=== PATIENT | female | born 1955 | race Caucasian/White ===

== ENCOUNTER 2021-08-02 13:01 | Inpatient (IN) | payer BC, OTHER ==
[2021-08-02] MEDS ORDERED: ACETAMINOPHEN 1000 MG/100 ML BAG IVPB ONE (14:19)
[2021-08-02] MEDS ORDERED: ONDANSETRON 4 MG/2 ML VIAL IVPUSH ONE (14:20)
[2021-08-02 15:09] LABS: BASO % 1.2 % (0-2.0); EOS % 2.8 % (0-4.5); HEMATOCRIT 42.6 % (32.4-45.2); HEMOGLOBIN 14.1 GM/dL (10.7-15.3); LYMPH % 36.4 % (8-40); MCH 29.7 pg (25.7-33.7); MCHC 33.1 g/dl (32.0-36.0); MEAN CELL VOLUME 89.6 fl (80-96); MEAN PLT VOLUME 9.7 fl (7.5-11.1); MONO % 15.8 % (3.8-10.2); NEUT % 43.8 % (42.8-82.8); PLATELET COUNT 241 10^3/uL (134-434); RBC 4.76 M/mm3 (3.60-5.2); RDW 14.4 % (11.6-15.6); WHITE BLOOD COUNT 3.6 K/mm3 (4.0-10.0)
[2021-08-02 15:29] LABS: CALCIUM 9.2 mg/dL (8.5-10.1)
[2021-08-02 15:30] LABS: ALBUMIN 3.5 g/dl (3.4-5.0); BLOOD UREA NITROGEN 15.3 mg/dL (7-18); MAGNESIUM 2.1 mg/dL (1.8-2.4)
[2021-08-02 15:33] LABS: CREATININE 0.9 mg/dL (0.55-1.3)
[2021-08-02 15:34] LABS: BILIRUBIN,TOTAL 0.3 mg/dL (0.2-1); TOT PROT 7.6 g/dl (6.4-8.2)
[2021-08-02 15:38] LABS: EPI CELLS 10 /uL (0-25.1); HYALINE CASTS 0 /uL (0-3.1); URINE APPEARANCE CLEAR; URINE BACTERIA 468 /uL (0-1359); URINE BILIRUBIN NEGATIVE (NEGATIVE); URINE COLOR YELLOW; URINE GLUCOSE (UA) NEGATIVE (NEGATIVE); URINE KETONE NEGATIVE (NEGATIVE); URINE LEUK ESTERASE 2+ (NEGATIVE); URINE NITRITE NEGATIVE (NEGATIVE); URINE PROTEIN NEGATIVE (NEGATIVE); URINE RBC 13 /uL (0-23.9); URINE UROBILINOGEN 0.2 mg/dL (0.2-1.0); URINE WBC 35 /uL (0-25.8)
[2021-08-02] MEDS ORDERED: CEFTRIAXONE 1 GM in DEXTROSE 5%-WATER - 100 ML IVPB ONE (16:42)
[2021-08-02] MEDS ORDERED: CEFTRIAXONE 1 GM/50 ML BAG ONE (16:50)
[2021-08-02] MEDS ORDERED: METOCLOPRAMIDE HCL INJECTION 10 MG/2 ML VIAL IVPUSH ONE (17:17)
[2021-08-02] MEDS ORDERED: SODIUM CHLORIDE 0.9% 500 ML INFUS.BAG IV ONE (17:18)
[2021-08-02] MEDS ORDERED: METOCLOPRAMIDE HCL INJECTION 10 MG/2 ML VIAL ONE (17:41)
[2021-08-02] MEDS ORDERED: METHOCARBAMOL 500 MG TABLET PO PRN (23:37)
[2021-08-02] MEDS ORDERED: ALBUTEROL SO4 2.5/IPRATROPIUM 0.5 INH SOL 3 ML VIAL.NEB. NEB PRN (23:43)
[2021-08-03] MEDS ORDERED: MELATONIN 5 MG TABLETS ONE (02:09)
[2021-08-03] MEDS ORDERED: ATORVASTATIN CA 20 MG TABLET (FP) ONE (02:09)
[2021-08-03] MEDS ORDERED: GABAPENTIN 300 MG CAPSULE ONE ×2 (02:10→07:22)
[2021-08-03] MEDS: ATORVASTATIN CA 20 MG TABLET (FP) PO SCH ×2 (02:17→22:12)
[2021-08-03] MEDS: GABAPENTIN 300 MG CAPSULE PO SCH ×4 (02:18→22:12)
[2021-08-03] MEDS: MELATONIN 5 MG TABLETS PO PRN (02:18)
[2021-08-03 08:40] LABS: EOS % 3.8 % (0-4.5); HEMATOCRIT 39.3 % (32.4-45.2); HEMOGLOBIN 13.1 GM/dL (10.7-15.3); LYMPH % 37.4 % (8-40); MCH 29.8 pg (25.7-33.7); MCHC 33.4 g/dl (32.0-36.0); MEAN PLT VOLUME 9.2 fl (7.5-11.1); MONO % 15.4 % (3.8-10.2); NEUT % 42.4 % (42.8-82.8); PLATELET COUNT 213 10^3/uL (134-434); RBC 4.42 M/mm3 (3.60-5.2); RDW 14.2 % (11.6-15.6); WHITE BLOOD COUNT 3.1 K/mm3 (4.0-10.0)
[2021-08-03 09:51] LABS: BLOOD UREA NITROGEN 15.8 mg/dL (7-18); CALCIUM 8.8 mg/dL (8.5-10.1); CREATININE 0.7 mg/dL (0.55-1.3)
[2021-08-03] MEDS ORDERED: metoPROLOL SUCCINATE 25 MG TAB.SR.24H (FP) PO SCH (10:00)
[2021-08-03] MEDS ORDERED: DULoxetine HCL 60 MG CAPSULE.DR PO SCH (10:00)
[2021-08-03] MEDS ORDERED: cefTRIAXone SODIUM 1 GM VIAL ONE (10:16)
[2021-08-03] MEDS ORDERED: DEXTROSE 5%-WATER - 50 ML IVPB ONE (10:17)
[2021-08-03] MEDS: DULoxetine HCL 30 MG CAPSULE.DR PO SCH (10:18)
[2021-08-03] MEDS: levETIRAcetam 250 MG TABLET PO SCH ×2 (10:19→22:12)
[2021-08-03] MEDS: CEFTRIAXONE 1 GM in DEXTROSE 5%-WATER - 50 ML IVPB SCH (10:19)
[2021-08-03] MEDS: LOSARTAN POTASSIUM 25 MG TABLET PO SCH (10:19)
[2021-08-03 13:08] LABS: SARS-CoV-2 NAA Not Detected (Not Detected)
[2021-08-03 13:31] VITALS: BMI 40.9
[2021-08-03] MEDS: NYSTATIN POWDER 100,000 UNITS/GM - 15 GM TOPICAL POWDER TP PRN (13:43)
[2021-08-03] MEDS: BUDESONIDE/FORMETEROL FUMARATE 80/4.5 mcg INHALER IH SCH ×2 (13:44→22:13)
[2021-08-03] MEDS ORDERED: ACETAMINOPHEN 325 MG TABLET (FP) PO PRN (14:20)
[2021-08-03] MEDS: RIVAROXABAN 20 MG TABLET PO SCH (17:18)
[2021-08-03] MEDS ORDERED: SUMAtriptan SUCCINATE 50 MG TABLET PO PRN (21:21)
[2021-08-03] MEDS ORDERED: traZODone HCL 100 MG TABLET (FP) ONE (21:55)
[2021-08-03] MEDS ORDERED: traZODone HCL 50 MG TABLET (FP) ONE ×2 (21:55→22:03)
[2021-08-03] MEDS ORDERED: PATIENT'S OWN MEDICATION (NON-FORMULARY) (Trazodone Hcl [Trazodone Hcl] 150 MG Tablet) PO SCH (22:00)
[2021-08-03] MEDS: traZODone HCL 100 MG, traZODone HCL 50 MG PO SCH (22:12)
[2021-08-03] MEDS: TOPIRAMATE 25 MG TABLET PO SCH (22:12)
[2021-08-03] MEDS: PRAMIPEXOLE DIHYDROCHLORIDE 0.125 MG TABLET PO SCH (22:13)
[2021-08-04] MEDS: GABAPENTIN 300 MG CAPSULE PO SCH ×3 (06:46→21:23)
[2021-08-04] MEDS ORDERED: cefTRIAXone SODIUM 1 GM VIAL ONE (10:24)
[2021-08-04] MEDS ORDERED: DEXTROSE 5%-WATER - 50 ML IVPB ONE (10:24)
[2021-08-04] MEDS: DULoxetine HCL 30 MG CAPSULE.DR PO SCH (10:25)
[2021-08-04] MEDS: CEFTRIAXONE 1 GM in DEXTROSE 5%-WATER - 50 ML IVPB SCH (10:26)
[2021-08-04] MEDS: BUDESONIDE/FORMETEROL FUMARATE 80/4.5 mcg INHALER IH SCH (10:26)
[2021-08-04] MEDS: TOPIRAMATE 25 MG TABLET PO SCH ×2 (10:26→21:22)
[2021-08-04] MEDS: LOSARTAN POTASSIUM 25 MG TABLET PO SCH (10:26)
[2021-08-04] MEDS: levETIRAcetam 250 MG TABLET PO SCH ×3 (10:27→21:22)
[2021-08-04] MEDS: PRAMIPEXOLE DIHYDROCHLORIDE 0.125 MG TABLET PO SCH ×2 (10:27→22:03)
[2021-08-04] MEDS: VANCOMYCIN/WATER FOR INJ (PEG) 1,000 MG/200 ML BAG IVPB SCH (14:37)
[2021-08-04] MEDS: methylPREDNISolone NA SUCC 40 MG/1 ML VIAL IVPUSH SCH ×2 (17:28→21:23)
[2021-08-04] MEDS: RIVAROXABAN 20 MG TABLET PO SCH (17:28)
[2021-08-04 17:29] LABS: ALBUMIN 3.2 g/dl (3.4-5.0)
[2021-08-04 17:32] LABS: BILIRUBIN,DIRECT 0.1 mg/dL (0.0-0.2)
[2021-08-04 17:34] LABS: BILIRUBIN,TOTAL 0.2 mg/dL (0.2-1); TOT PROT 6.7 g/dl (6.4-8.2)
[2021-08-04] MEDS ORDERED: traZODone HCL 50 MG TABLET (FP) ONE (21:08)
[2021-08-04] MEDS ORDERED: traZODone HCL 100 MG TABLET (FP) ONE (21:08)
[2021-08-04] MEDS: ATORVASTATIN CA 20 MG TABLET (FP) PO SCH (21:22)
[2021-08-04] MEDS: traZODone HCL 100 MG, traZODone HCL 50 MG PO SCH (21:22)
[2021-08-04] MEDS: BUDESONIDE/FORMETEROL FUMARATE 160/4.5 mcg INHALER IH SCH (21:28)
[2021-08-05] MEDS: methylPREDNISolone NA SUCC 40 MG/1 ML VIAL IVPUSH SCH ×4 (03:47→20:40)
[2021-08-05] MEDS: GABAPENTIN 300 MG CAPSULE PO SCH ×3 (06:05→21:39)
[2021-08-05 06:07] LABS: SARS-CoV-2 NAA Not Detected (Not Detected)
[2021-08-05] MEDS ORDERED: BENZOCAINE/MENTHOL (CHLORASEPTIC ) LOZENGE MM PRN (09:25)
[2021-08-05] MEDS: DULoxetine HCL 30 MG CAPSULE.DR PO SCH (10:11)
[2021-08-05] MEDS: LOSARTAN POTASSIUM 25 MG TABLET PO SCH (10:12)
[2021-08-05] MEDS: BENZOCAINE/MENTHOL (CHLORASEPTIC ) LOZENGE MM SCH ×4 (10:12→21:47)
[2021-08-05] MEDS: BUDESONIDE/FORMETEROL FUMARATE 160/4.5 mcg INHALER IH SCH ×2 (10:13→21:40)
[2021-08-05] MEDS: levETIRAcetam 250 MG TABLET PO SCH ×2 (10:13→21:39)
[2021-08-05] MEDS: LORATADINE 10 MG TABLET PO SCH (10:13)
[2021-08-05] MEDS: TOPIRAMATE 25 MG TABLET PO SCH ×2 (10:13→21:39)
[2021-08-05] MEDS: PRAMIPEXOLE DIHYDROCHLORIDE 0.125 MG TABLET PO SCH ×2 (10:14→21:39)
[2021-08-05] MEDS: FLUTICASONE PROP 0.05% 16 GM NASAL SPRAY NS SCH (10:14)
[2021-08-05] MEDS: guaiFENesin/CODEINE 5 ML UNIT-DOSE CUPS PO PRN ×2 (13:23→20:40)
[2021-08-05] MEDS: VANCOMYCIN/WATER FOR INJ (PEG) 1,000 MG/200 ML BAG IVPB SCH (14:24)
[2021-08-05] MEDS: RIVAROXABAN 20 MG TABLET PO SCH (17:27)
[2021-08-05] MEDS ORDERED: traZODone HCL 100 MG TABLET (FP) ONE ×2 (21:34→21:36)
[2021-08-05] MEDS ORDERED: traZODone HCL 50 MG TABLET (FP) ONE ×2 (21:34→21:36)
[2021-08-05] MEDS: traZODone HCL 100 MG, traZODone HCL 50 MG PO SCH (21:39)
[2021-08-05] MEDS: NYSTATIN POWDER 100,000 UNITS/GM - 15 GM TOPICAL POWDER TP PRN (21:39)
[2021-08-05] MEDS: ATORVASTATIN CA 20 MG TABLET (FP) PO SCH (21:39)
[2021-08-06] MEDS: methylPREDNISolone NA SUCC 40 MG/1 ML VIAL IVPUSH SCH ×4 (03:13→20:29)
[2021-08-06] MEDS: GABAPENTIN 300 MG CAPSULE PO SCH ×3 (06:33→21:14)
[2021-08-06] MEDS: NYSTATIN POWDER 100,000 UNITS/GM - 15 GM TOPICAL POWDER TP PRN (06:33)
[2021-08-06 08:54] LABS: HEMATOCRIT 41.7 % (32.4-45.2); HEMOGLOBIN 13.8 GM/dL (10.7-15.3); MCH 29.7 pg (25.7-33.7); MCHC 33.1 g/dl (32.0-36.0); MEAN CELL VOLUME 89.9 fl (80-96); PLATELET COUNT 311 10^3/uL (134-434); RBC 4.64 M/mm3 (3.60-5.2); RDW 14.4 % (11.6-15.6); WHITE BLOOD COUNT 5.7 K/mm3 (4.0-10.0)
[2021-08-06] MEDS: DULoxetine HCL 30 MG CAPSULE.DR PO SCH (09:00)
[2021-08-06] MEDS: PRAMIPEXOLE DIHYDROCHLORIDE 0.125 MG TABLET PO SCH ×2 (09:01→21:14)
[2021-08-06] MEDS: TOPIRAMATE 25 MG TABLET PO SCH ×2 (09:01→21:14)
[2021-08-06] MEDS: LORATADINE 10 MG TABLET PO SCH (09:02)
[2021-08-06] MEDS: levETIRAcetam 250 MG TABLET PO SCH ×2 (09:02→21:14)
[2021-08-06] MEDS: FLUTICASONE PROP 0.05% 16 GM NASAL SPRAY NS SCH (09:02)
[2021-08-06] MEDS: BENZOCAINE/MENTHOL (CHLORASEPTIC ) LOZENGE MM SCH ×4 (09:02→22:54)
[2021-08-06] MEDS: LOSARTAN POTASSIUM 25 MG TABLET PO SCH (09:02)
[2021-08-06] MEDS: BUDESONIDE/FORMETEROL FUMARATE 160/4.5 mcg INHALER IH SCH ×2 (09:03→21:16)
[2021-08-06 09:06] LABS: BLOOD UREA NITROGEN 20.6 mg/dL (7-18)
[2021-08-06 09:09] LABS: CREATININE 0.8 mg/dL (0.55-1.3)
[2021-08-06] MEDS: guaiFENesin/CODEINE 5 ML UNIT-DOSE CUPS PO PRN ×2 (10:57→20:29)
[2021-08-06] MEDS: VANCOMYCIN/WATER FOR INJ (PEG) 1,000 MG/200 ML BAG IVPB SCH (13:34)
[2021-08-06] MEDS: ACETAMINOPHEN/CAFFEINE/BUTALBITAL 1 TAB PO PRN ×2 (14:01→22:54)
[2021-08-06] MEDS ORDERED: ACETAMINOPHEN/CAFFEINE/BUTALBITAL 1 TAB PO ONE (16:26)
[2021-08-06] MEDS: RIVAROXABAN 20 MG TABLET PO SCH (17:02)
[2021-08-06] MEDS ORDERED: traZODone HCL 50 MG TABLET (FP) ONE (21:07)
[2021-08-06] MEDS ORDERED: traZODone HCL 100 MG TABLET (FP) ONE (21:07)
[2021-08-06] MEDS: traZODone HCL 100 MG, traZODone HCL 50 MG PO SCH (21:14)
[2021-08-06] MEDS: ATORVASTATIN CA 20 MG TABLET (FP) PO SCH (21:14)
[2021-08-06] MEDS: MELATONIN 5 MG TABLETS PO PRN (21:15)
[2021-08-07] MEDS: methylPREDNISolone NA SUCC 40 MG/1 ML VIAL IVPUSH SCH ×4 (03:04→20:41)
[2021-08-07] MEDS: GABAPENTIN 300 MG CAPSULE PO SCH ×3 (05:38→21:28)
[2021-08-07] MEDS: LOSARTAN POTASSIUM 25 MG TABLET PO SCH (09:27)
[2021-08-07] MEDS: DULoxetine HCL 30 MG CAPSULE.DR PO SCH (09:27)
[2021-08-07] MEDS: guaiFENesin/CODEINE 5 ML UNIT-DOSE CUPS PO PRN ×3 (09:27→22:58)
[2021-08-07] MEDS: LORATADINE 10 MG TABLET PO SCH (09:28)
[2021-08-07] MEDS: TOPIRAMATE 25 MG TABLET PO SCH ×2 (09:28→21:27)
[2021-08-07] MEDS: ACETAMINOPHEN/CAFFEINE/BUTALBITAL 1 TAB PO PRN ×3 (09:28→20:41)
[2021-08-07] MEDS: BENZOCAINE/MENTHOL (CHLORASEPTIC ) LOZENGE MM SCH ×4 (09:29→22:12)
[2021-08-07] MEDS: levETIRAcetam 250 MG TABLET PO SCH ×2 (09:29→21:27)
[2021-08-07] MEDS: FLUTICASONE PROP 0.05% 16 GM NASAL SPRAY NS SCH (09:29)
[2021-08-07] MEDS: PRAMIPEXOLE DIHYDROCHLORIDE 0.125 MG TABLET PO SCH (09:31)
[2021-08-07] MEDS: BUDESONIDE/FORMETEROL FUMARATE 160/4.5 mcg INHALER IH SCH ×2 (09:31→22:16)
[2021-08-07] MEDS: RIVAROXABAN 20 MG TABLET PO SCH (17:09)
[2021-08-07] MEDS: VANCOMYCIN/WATER FOR INJ (PEG) 1,000 MG/200 ML BAG IVPB SCH (17:44)
[2021-08-07] MEDS ORDERED: traZODone HCL 50 MG TABLET (FP) ONE (21:17)
[2021-08-07] MEDS ORDERED: traZODone HCL 100 MG TABLET (FP) ONE (21:17)
[2021-08-07] MEDS: traZODone HCL 100 MG, traZODone HCL 50 MG PO SCH (21:27)
[2021-08-07] MEDS: ATORVASTATIN CA 20 MG TABLET (FP) PO SCH (21:28)
[2021-08-07] MEDS: PRAMIPEXOLE DIHYDROCHLORIDE 0.25 MG TABLET PO SCH (21:29)
[2021-08-08] MEDS: methylPREDNISolone NA SUCC 40 MG/1 ML VIAL IVPUSH SCH (02:39)
[2021-08-08] MEDS: GABAPENTIN 300 MG CAPSULE PO SCH ×3 (06:21→21:01)
[2021-08-08] MEDS: ACETAMINOPHEN/CAFFEINE/BUTALBITAL 1 TAB PO PRN ×3 (07:04→21:02)
[2021-08-08] MEDS: guaiFENesin/CODEINE 5 ML UNIT-DOSE CUPS PO PRN ×3 (07:08→21:02)
[2021-08-08] MEDS: BENZOCAINE/MENTHOL (CHLORASEPTIC ) LOZENGE MM SCH ×4 (09:37→21:02)
[2021-08-08] MEDS: PRAMIPEXOLE DIHYDROCHLORIDE 0.25 MG TABLET PO SCH ×2 (09:39→21:01)
[2021-08-08] MEDS: DULoxetine HCL 30 MG CAPSULE.DR PO SCH (09:39)
[2021-08-08] MEDS: TOPIRAMATE 25 MG TABLET PO SCH ×2 (09:39→21:02)
[2021-08-08] MEDS: LOSARTAN POTASSIUM 25 MG TABLET PO SCH (09:39)
[2021-08-08] MEDS: levETIRAcetam 250 MG TABLET PO SCH ×2 (09:39→21:02)
[2021-08-08] MEDS: FLUTICASONE PROP 0.05% 16 GM NASAL SPRAY NS SCH (09:40)
[2021-08-08] MEDS: predniSONE 20 MG TABLET (UD) PO SCH ×2 (09:40→21:01)
[2021-08-08] MEDS: FLUTICASONE/UMECLIDIN/VILANTER(200-62.5-25 TRELEGY ELLIPTA) INAHLER IH SCH (11:28)
[2021-08-08] MEDS: NITROFURANTOIN MACROCRYSTAL 50 MG CAPSULE (FP) PO SCH ×2 (12:01→17:01)
[2021-08-08] MEDS ORDERED: ALBUTEROL SO4 2.5/IPRATROPIUM 0.5 INH SOL 3 ML VIAL.NEB. NEB SCH (14:00)
[2021-08-08] MEDS: RIVAROXABAN 20 MG TABLET PO SCH (17:01)
[2021-08-08] MEDS: ALBUTEROL SO4 2.5/IPRATROPIUM 0.5 INH SOL 3 ML VIAL.NEB. NEB SCH (20:22)
[2021-08-08] MEDS ORDERED: traZODone HCL 100 MG TABLET (FP) ONE (20:57)
[2021-08-08] MEDS ORDERED: traZODone HCL 50 MG TABLET (FP) ONE (20:57)
[2021-08-08] MEDS: ATORVASTATIN CA 20 MG TABLET (FP) PO SCH (21:01)
[2021-08-08] MEDS: traZODone HCL 100 MG, traZODone HCL 50 MG PO SCH (21:02)
[2021-08-09] MEDS: NITROFURANTOIN MACROCRYSTAL 50 MG CAPSULE (FP) PO SCH ×4 (01:00→17:49)
[2021-08-09] MEDS: GABAPENTIN 300 MG CAPSULE PO SCH ×3 (05:45→21:14)
[2021-08-09] MEDS: ACETAMINOPHEN/CAFFEINE/BUTALBITAL 1 TAB PO PRN ×3 (05:45→20:41)
[2021-08-09] MEDS: ALBUTEROL SO4 2.5/IPRATROPIUM 0.5 INH SOL 3 ML VIAL.NEB. NEB SCH ×3 (08:04→20:32)
[2021-08-09] MEDS: DULoxetine HCL 30 MG CAPSULE.DR PO SCH (09:33)
[2021-08-09] MEDS: levETIRAcetam 250 MG TABLET PO SCH ×2 (09:33→21:14)
[2021-08-09] MEDS: TOPIRAMATE 25 MG TABLET PO SCH ×2 (09:33→21:14)
[2021-08-09] MEDS: predniSONE 20 MG TABLET (UD) PO SCH ×2 (09:33→21:14)
[2021-08-09] MEDS: LOSARTAN POTASSIUM 25 MG TABLET PO SCH (09:33)
[2021-08-09] MEDS: PRAMIPEXOLE DIHYDROCHLORIDE 0.25 MG TABLET PO SCH ×2 (09:33→21:14)
[2021-08-09] MEDS: FLUTICASONE PROP 0.05% 16 GM NASAL SPRAY NS SCH (09:34)
[2021-08-09] MEDS: FLUTICASONE/UMECLIDIN/VILANTER(200-62.5-25 TRELEGY ELLIPTA) INAHLER IH SCH (09:35)
[2021-08-09] MEDS: BENZOCAINE/MENTHOL (CHLORASEPTIC ) LOZENGE MM SCH ×4 (09:44→21:55)
[2021-08-09] MEDS: NYSTATIN 500,000 UNITS/5 ML SUSPENSION PO SCH ×2 (11:42→17:49)
[2021-08-09] MEDS: NYSTATIN POWDER 100,000 UNITS/GM - 15 GM TOPICAL POWDER TP PRN (15:57)
[2021-08-09] MEDS: guaiFENesin/CODEINE 5 ML UNIT-DOSE CUPS PO PRN ×2 (16:30→20:39)
[2021-08-09] MEDS: RIVAROXABAN 20 MG TABLET PO SCH (17:49)
[2021-08-09] MEDS ORDERED: traZODone HCL 100 MG TABLET (FP) ONE (21:10)
[2021-08-09] MEDS ORDERED: traZODone HCL 50 MG TABLET (FP) ONE (21:10)
[2021-08-09] MEDS: ATORVASTATIN CA 20 MG TABLET (FP) PO SCH (21:14)
[2021-08-09] MEDS: traZODone HCL 100 MG, traZODone HCL 50 MG PO SCH (21:14)
[2021-08-10] MEDS: NYSTATIN 500,000 UNITS/5 ML SUSPENSION PO SCH ×3 (00:03→12:19)
[2021-08-10] MEDS: MELATONIN 5 MG TABLETS PO PRN (00:03)
[2021-08-10] MEDS: NITROFURANTOIN MACROCRYSTAL 50 MG CAPSULE (FP) PO SCH ×3 (00:03→12:19)
[2021-08-10] MEDS: ACETAMINOPHEN/CAFFEINE/BUTALBITAL 1 TAB PO PRN ×3 (02:11→13:01)
[2021-08-10] MEDS: guaiFENesin/CODEINE 5 ML UNIT-DOSE CUPS PO PRN ×2 (02:11→07:49)
[2021-08-10] MEDS: GABAPENTIN 300 MG CAPSULE PO SCH ×2 (05:39→13:02)
[2021-08-10] MEDS: ALBUTEROL SO4 2.5/IPRATROPIUM 0.5 INH SOL 3 ML VIAL.NEB. NEB SCH ×2 (07:25→13:59)
[2021-08-10] MEDS: DULoxetine HCL 30 MG CAPSULE.DR PO SCH (09:48)
[2021-08-10] MEDS: TOPIRAMATE 25 MG TABLET PO SCH (09:48)
[2021-08-10] MEDS: levETIRAcetam 250 MG TABLET PO SCH (09:48)
[2021-08-10] MEDS: LOSARTAN POTASSIUM 25 MG TABLET PO SCH (09:48)
[2021-08-10] MEDS: predniSONE 20 MG TABLET (UD) PO SCH (09:48)
[2021-08-10] MEDS: BENZOCAINE/MENTHOL (CHLORASEPTIC ) LOZENGE MM SCH ×2 (09:49→13:01)
[2021-08-10] MEDS: PRAMIPEXOLE DIHYDROCHLORIDE 0.25 MG TABLET PO SCH (09:49)
[2021-08-10] MEDS: FLUTICASONE/UMECLIDIN/VILANTER(200-62.5-25 TRELEGY ELLIPTA) INAHLER IH SCH (09:49)
[2021-08-10] MEDS: FLUTICASONE PROP 0.05% 16 GM NASAL SPRAY NS SCH (09:49)
[2021-08-10 12:09] LABS: SARS-CoV-2 NAA Not Detected (Not Detected)
[2021-08-10] MEDS ORDERED: ACETAMINOPHEN/CAFFEINE/BUTALBITAL 1 TAB PO PRN (13:02)
[2021-08-10 13:57] VITALS: BP 118/51; PULSE 63; TEMP 98.4
== END 2021-08-10 16:20 | DRG 191 ==
LOC: JER 13:01 → JERBED 20:02 → J6S 08-03 09:25 → OBSVTOIN 08-07 10:41
PROVIDERS: ADMIT Internal Medicine; ATTEND Family Medicine
DX: J44.1 Chronic obstructive pulmonary disease with (acute) exacerbation (principal); N39.0 Urinary tract infection, site not specified; Z68.41 Body mass index [BMI] 40.0-44.9, adult; G40.909 Epilepsy, unspecified, not intractable, without status epilepticus; G62.9 Polyneuropathy, unspecified; G25.81 Restless legs syndrome; G43.909 Migraine, unspecified, not intractable, without status migrainosus; E66.9 Obesity, unspecified; F32.A Depression, unspecified; B95.2 Enterococcus as the cause of diseases classified elsewhere; D72.819 Decreased white blood cell count, unspecified; Z88.0 Allergy status to penicillin; E78.5 Hyperlipidemia, unspecified
CPT/HCPCS: 36415; 71045-TC-FY; 71250-TC; 74176-TC; 80048; 80053; 80076; 80177; 81003; 83735; 84100; 84484; 85025; 85027; 87086; 87186; 87651; 93005; 93010; 94010; 94640; 97116-GP; 97161-GP; 99285-25; C9803-CS; G0378; G0480; U0003; U0005

== ENCOUNTER 2021-08-25 22:00 | Inpatient (IN) | payer OTHER ==
[2021-08-25 22:56] VITALS: BMI 41.2
[2021-08-25 23:24] LABS: VENOUS BASE EXCESS -1.7 mmol/L (-2-2); VENOUS O2 SATURATION 91.8 % (70-80); VENOUS PCO2 43.9 mmHg (38-52); VENOUS PH 7.355 (7.310-7.410)
[2021-08-25 23:25] LABS: BASO % 0.7 % (0-2.0); EOS % 4.6 % (0-4.5); HEMOGLOBIN 12.8 GM/dL (10.7-15.3); LYMPH % 28.8 % (8-40); MCH 29.9 pg (25.7-33.7); MCHC 32.9 g/dl (32.0-36.0); MEAN CELL VOLUME 90.9 fl (80-96); MEAN PLT VOLUME 8.3 fl (7.5-11.1); MONO % 8.4 % (3.8-10.2); NEUT % 57.5 % (42.8-82.8); PLATELET COUNT 190 10^3/uL (134-434); RBC 4.29 M/mm3 (3.60-5.2); RDW 15.7 % (11.6-15.6); WHITE BLOOD COUNT 8.9 K/mm3 (4.0-10.0)
[2021-08-25 23:33] LABS: INR 1.4 (0.83-1.09); PROTHROMBIN TIME (PATIENT) 16.1 SEC (9.7-13.0)
[2021-08-25 23:36] LABS: ACTIVATED PTT 28.1 SECONDS (25.2-36.5)
[2021-08-25 23:46] LABS: CALCIUM 8.2 mg/dL (8.5-10.1)
[2021-08-25 23:47] LABS: BLOOD UREA NITROGEN 22.9 mg/dL (7-18)
[2021-08-25 23:50] LABS: CREATININE 0.8 mg/dL (0.55-1.3)
[2021-08-25 23:52] LABS: BILIRUBIN,TOTAL 0.2 mg/dL (0.2-1); TOT PROT 5.9 g/dl (6.4-8.2)
[2021-08-26] MEDS ORDERED: ACETAMINOPHEN 1000 MG/100 ML BAG IVPB ONE (02:42)
[2021-08-26] MEDS ORDERED: LIDOCAINE 5% TOPICAL PATCH TP ONE (02:42)
[2021-08-26] MEDS ORDERED: LIDOCAINE 5% TOPICAL PATCH ONE (02:55)
[2021-08-26] MEDS ORDERED: ACETAMINOPHEN INJECTION 100 ML IVPB ONE (02:55)
[2021-08-26] MEDS ORDERED: SENNOSIDES 8.6MG TABLET (FP) PO PRN (03:00)
[2021-08-26 03:42] LABS: EPI CELLS 1 /uL (0-25.1); HYALINE CASTS 0 /uL (0-3.1); URINE APPEARANCE CLOUDY; URINE BILIRUBIN NEGATIVE (NEGATIVE); URINE COLOR YELLOW; URINE GLUCOSE (UA) NEGATIVE (NEGATIVE); URINE KETONE NEGATIVE (NEGATIVE); URINE LEUK ESTERASE 3+ (NEGATIVE); URINE NITRITE POSITIVE (NEGATIVE); URINE PROTEIN NEGATIVE (NEGATIVE); URINE RBC 4 /uL (0-23.9); URINE UROBILINOGEN 0.2 mg/dL (0.2-1.0); URINE WBC 556 /uL (0-25.8)
[2021-08-26] MEDS ORDERED: VANCOMYCIN 1 GRAM (PRE-DOCKED) 1,000 MG/250 ML BAG IVPB ONE (03:53)
[2021-08-26] MEDS ORDERED: oxyCODONE HCL 5 MG TABLET PO PRN (04:42)
[2021-08-26] MEDS: GABAPENTIN 300 MG CAPSULE PO SCH ×3 (05:11→21:30)
[2021-08-26 06:45] LABS: BASO % 0.3 % (0-2.0); EOS % 5.1 % (0-4.5); HEMATOCRIT 40.4 % (32.4-45.2); LYMPH % 31.2 % (8-40); MCH 29.6 pg (25.7-33.7); MCHC 32.2 g/dl (32.0-36.0); MEAN CELL VOLUME 91.9 fl (80-96); MEAN PLT VOLUME 8.3 fl (7.5-11.1); MONO % 6.4 % (3.8-10.2); PLATELET COUNT 191 10^3/uL (134-434); RBC 4.39 M/mm3 (3.60-5.2); RDW 16.1 % (11.6-15.6); WHITE BLOOD COUNT 8.4 K/mm3 (4.0-10.0)
[2021-08-26 07:04] LABS: CALCIUM 8.1 mg/dL (8.5-10.1)
[2021-08-26 07:05] LABS: ALBUMIN 3.1 g/dl (3.4-5.0); BLOOD UREA NITROGEN 19.1 mg/dL (7-18); MAGNESIUM 2.3 mg/dL (1.8-2.4)
[2021-08-26 07:08] LABS: CREATININE 0.7 mg/dL (0.55-1.3)
[2021-08-26 07:09] LABS: BILIRUBIN,TOTAL 0.3 mg/dL (0.2-1); TOT PROT 5.8 g/dl (6.4-8.2)
[2021-08-26 08:16] LABS: URINE BACTERIA 1338.2 /uL (0-1359)
[2021-08-26] MEDS ORDERED: REMDESIVIR 200 MG in SODIUM CHLORIDE 250 ML IVPB ONE (09:00)
[2021-08-26] MEDS ORDERED: RIVAROXABAN 20 MG TABLET PO SCH (10:00)
[2021-08-26] MEDS ORDERED: CEFTRIAXONE 1,000 MG in DEXTROSE 5%-WATER - 50 ML IVPB SCH (10:00)
[2021-08-26] MEDS ORDERED: cefTRIAXone SODIUM 1 GM VIAL ONE (10:26)
[2021-08-26] MEDS ORDERED: DEXTROSE 5%-WATER - 50 ML IVPB ONE (10:26)
[2021-08-26] MEDS: CEFTRIAXONE 1 GM in DEXTROSE 5%-WATER - 50 ML IVPB SCH (10:29)
[2021-08-26] MEDS: levETIRAcetam 250 MG TABLET PO SCH ×2 (10:29→21:30)
[2021-08-26] MEDS: TOPIRAMATE 25 MG TABLET PO SCH ×2 (10:30→21:29)
[2021-08-26] MEDS: ACETAMINOPHEN 325 MG TABLET (FP) PO PRN (10:31)
[2021-08-26] MEDS: predniSONE 20 MG TABLET (UD) PO SCH ×2 (10:31→21:30)
[2021-08-26] MEDS: DULoxetine HCL 30 MG CAPSULE.DR PO SCH (10:31)
[2021-08-26] MEDS: PRAMIPEXOLE DIHYDROCHLORIDE 0.25 MG TABLET PO SCH ×2 (12:12→21:30)
[2021-08-26] MEDS: FLUTICASONE/UMECLIDIN/VILANTER(200-62.5-25 TRELEGY ELLIPTA) INAHLER IH SCH (12:12)
[2021-08-26] MEDS ORDERED: ACETAMINOPHEN/CAFFEINE/BUTALBITAL 1 TAB PO PRN (13:53)
[2021-08-26] MEDS ORDERED: ACETAMINOPHEN 1000 MG/100 ML BAG IVPB PRN (21:11)
[2021-08-26] MEDS ORDERED: traZODone HCL 50 MG TABLET (FP) ONE (21:21)
[2021-08-26] MEDS ORDERED: traZODone HCL 100 MG TABLET (FP) ONE (21:21)
[2021-08-26] MEDS: traZODone HCL 100 MG, traZODone HCL 50 MG PO SCH (21:29)
[2021-08-26] MEDS: LIDOCAINE PATCH REMOVAL MC SCH (21:30)
[2021-08-26] MEDS: ATORVASTATIN CA 20 MG TABLET (FP) PO SCH (21:30)
[2021-08-26] MEDS ORDERED: traZODone HCL 150 MG TABLET PO SCH (22:00)
[2021-08-26] MEDS ORDERED: VANCOMYCIN 1 GM/200 ML PREMIX BAG IVPB ONE (22:00)
[2021-08-26] MEDS: MELATONIN 5 MG TABLETS PO PRN (22:29)
[2021-08-27] MEDS ORDERED: MELATONIN 5 MG TABLETS PO ONE (02:33)
[2021-08-27] MEDS: GABAPENTIN 300 MG CAPSULE PO SCH ×3 (05:53→21:22)
[2021-08-27] MEDS ORDERED: DEXTROSE 5%-WATER - 50 ML IVPB ONE (08:59)
[2021-08-27] MEDS ORDERED: cefTRIAXone SODIUM 1 GM VIAL ONE (08:59)
[2021-08-27] MEDS: TOPIRAMATE 25 MG TABLET PO SCH ×2 (09:03→21:21)
[2021-08-27] MEDS: predniSONE 20 MG TABLET (UD) PO SCH ×2 (09:03→21:22)
[2021-08-27] MEDS: DULoxetine HCL 30 MG CAPSULE.DR PO SCH (09:03)
[2021-08-27] MEDS: CEFTRIAXONE 1 GM in DEXTROSE 5%-WATER - 50 ML IVPB SCH (09:03)
[2021-08-27] MEDS: levETIRAcetam 250 MG TABLET PO SCH ×2 (09:03→21:22)
[2021-08-27] MEDS: PRAMIPEXOLE DIHYDROCHLORIDE 0.25 MG TABLET PO SCH ×2 (09:04→21:22)
[2021-08-27] MEDS: FLUTICASONE/UMECLIDIN/VILANTER(200-62.5-25 TRELEGY ELLIPTA) INAHLER IH SCH (09:04)
[2021-08-27] MEDS ORDERED: VANCOMYCIN 1 GM/200 ML PREMIX BAG IVPB ONE (10:37)
[2021-08-27] MEDS: ACETAMINOPHEN 325 MG TABLET (FP) PO PRN ×2 (12:46→21:31)
[2021-08-27] MEDS ORDERED: ACETAMINOPHEN/CAFFEINE/BUTALBITAL 1 TAB PO ONE (15:40)
[2021-08-27] MEDS: REMDESIVIR 100 MG in SODIUM CHLORIDE 250 ML IVPB SCH (15:47)
[2021-08-27] MEDS: RIVAROXABAN 20 MG TABLET PO SCH (17:17)
[2021-08-27] MEDS ORDERED: traZODone HCL 50 MG TABLET (FP) ONE (21:02)
[2021-08-27] MEDS ORDERED: traZODone HCL 100 MG TABLET (FP) ONE (21:02)
[2021-08-27] MEDS: MELATONIN 5 MG TABLETS PO PRN (21:21)
[2021-08-27] MEDS: ATORVASTATIN CA 20 MG TABLET (FP) PO SCH (21:21)
[2021-08-27] MEDS: traZODone HCL 100 MG, traZODone HCL 50 MG PO SCH (21:22)
[2021-08-27] MEDS: LIDOCAINE PATCH REMOVAL MC SCH (21:23)
[2021-08-27] MEDS ORDERED: ALBUTEROL SO4 HFA INHALER IH PRN (21:52)
[2021-08-28] MEDS: GABAPENTIN 300 MG CAPSULE PO SCH ×3 (06:19→21:53)
[2021-08-28] MEDS ORDERED: cefTRIAXone SODIUM 1 GM VIAL ONE (08:56)
[2021-08-28] MEDS ORDERED: DEXTROSE 5%-WATER - 50 ML IVPB ONE (08:56)
[2021-08-28] MEDS: CEFTRIAXONE 1 GM in DEXTROSE 5%-WATER - 50 ML IVPB SCH (09:01)
[2021-08-28] MEDS: predniSONE 20 MG TABLET (UD) PO SCH ×2 (09:01→21:53)
[2021-08-28] MEDS: TOPIRAMATE 25 MG TABLET PO SCH ×2 (09:01→21:53)
[2021-08-28] MEDS: levETIRAcetam 250 MG TABLET PO SCH ×2 (09:01→21:52)
[2021-08-28] MEDS: DULoxetine HCL 30 MG CAPSULE.DR PO SCH (09:01)
[2021-08-28] MEDS: FLUTICASONE/UMECLIDIN/VILANTER(200-62.5-25 TRELEGY ELLIPTA) INAHLER IH SCH (09:02)
[2021-08-28] MEDS: PRAMIPEXOLE DIHYDROCHLORIDE 0.25 MG TABLET PO SCH ×2 (11:47→21:53)
[2021-08-28] MEDS: REMDESIVIR 100 MG in SODIUM CHLORIDE 250 ML IVPB SCH (11:47)
[2021-08-28] MEDS: metoPROLOL SUCCINATE 25 MG TAB.SR.24H (FP) PO SCH (11:47)
[2021-08-28] MEDS ORDERED: ACETAMINOPHEN/CAFFEINE/BUTALBITAL 1 TAB PO PRN (16:56)
[2021-08-28] MEDS: RIVAROXABAN 20 MG TABLET PO SCH (17:19)
[2021-08-28] MEDS ORDERED: traZODone HCL 100 MG TABLET (FP) ONE (21:24)
[2021-08-28] MEDS ORDERED: traZODone HCL 50 MG TABLET (FP) ONE (21:24)
[2021-08-28] MEDS: ATORVASTATIN CA 20 MG TABLET (FP) PO SCH (21:52)
[2021-08-28] MEDS: traZODone HCL 100 MG, traZODone HCL 50 MG PO SCH (21:52)
[2021-08-28] MEDS: MELATONIN 5 MG TABLETS PO PRN (21:52)
[2021-08-28] MEDS: ACETAMINOPHEN 325 MG TABLET (FP) PO PRN (21:58)
[2021-08-28] MEDS: LIDOCAINE PATCH REMOVAL MC SCH (22:06)
[2021-08-29] MEDS: GABAPENTIN 300 MG CAPSULE PO SCH ×3 (06:04→21:18)
[2021-08-29 09:10] LABS: BASO % 0.3 % (0-2.0); EOS % 0.2 % (0-4.5); HEMATOCRIT 40.6 % (32.4-45.2); HEMOGLOBIN 13.2 GM/dL (10.7-15.3); LYMPH % 19.1 % (8-40); MCH 29.9 pg (25.7-33.7); MCHC 32.5 g/dl (32.0-36.0); MEAN CELL VOLUME 92.3 fl (80-96); MEAN PLT VOLUME 8.4 fl (7.5-11.1); MONO % 4.8 % (3.8-10.2); NEUT % 75.6 % (42.8-82.8); PLATELET COUNT 203 10^3/uL (134-434); RDW 16.6 % (11.6-15.6); WHITE BLOOD COUNT 7.9 K/mm3 (4.0-10.0)
[2021-08-29] MEDS ORDERED: cefTRIAXone SODIUM 1 GM VIAL ONE (09:13)
[2021-08-29] MEDS ORDERED: DEXTROSE 5%-WATER - 50 ML IVPB ONE (09:13)
[2021-08-29] MEDS: CEFTRIAXONE 1 GM in DEXTROSE 5%-WATER - 50 ML IVPB SCH (09:16)
[2021-08-29] MEDS: DULoxetine HCL 30 MG CAPSULE.DR PO SCH (09:17)
[2021-08-29] MEDS: metoPROLOL SUCCINATE 25 MG TAB.SR.24H (FP) PO SCH (09:17)
[2021-08-29] MEDS: predniSONE 20 MG TABLET (UD) PO SCH ×2 (09:17→21:18)
[2021-08-29] MEDS: levETIRAcetam 250 MG TABLET PO SCH ×2 (09:17→21:18)
[2021-08-29] MEDS: TOPIRAMATE 25 MG TABLET PO SCH ×2 (09:17→21:18)
[2021-08-29] MEDS: PRAMIPEXOLE DIHYDROCHLORIDE 0.25 MG TABLET PO SCH ×2 (09:18→21:18)
[2021-08-29] MEDS: FLUTICASONE/UMECLIDIN/VILANTER(200-62.5-25 TRELEGY ELLIPTA) INAHLER IH SCH (09:19)
[2021-08-29 09:44] LABS: BLOOD UREA NITROGEN 20.4 mg/dL (7-18)
[2021-08-29 09:46] LABS: ALBUMIN 3.2 g/dl (3.4-5.0); MAGNESIUM 2.3 mg/dL (1.8-2.4)
[2021-08-29 09:48] LABS: CREATININE 0.7 mg/dL (0.55-1.3)
[2021-08-29 09:50] LABS: TOT PROT 6.4 g/dl (6.4-8.2)
[2021-08-29 09:51] LABS: CALCIUM 9.1 mg/dL (8.5-10.1)
[2021-08-29 09:53] LABS: PHOSPHOROUS 3.8 mg/dL (2.5-4.9)
[2021-08-29 09:54] LABS: BILIRUBIN,TOTAL 0.3 mg/dL (0.2-1)
[2021-08-29] MEDS ORDERED: ACETAMINOPHEN/CAFFEINE/BUTALBITAL 1 TAB PO ONE (13:45)
[2021-08-29] MEDS: RIVAROXABAN 20 MG TABLET PO SCH (17:13)
[2021-08-29] MEDS ORDERED: traZODone HCL 100 MG TABLET (FP) ONE (20:48)
[2021-08-29] MEDS ORDERED: traZODone HCL 50 MG TABLET (FP) ONE (20:48)
[2021-08-29] MEDS: MELATONIN 5 MG TABLETS PO PRN (21:18)
[2021-08-29] MEDS: traZODone HCL 100 MG, traZODone HCL 50 MG PO SCH (21:18)
[2021-08-29] MEDS: ATORVASTATIN CA 20 MG TABLET (FP) PO SCH (21:19)
[2021-08-29] MEDS: METHOCARBAMOL 500 MG TABLET PO PRN (21:26)
[2021-08-29] MEDS: LIDOCAINE PATCH REMOVAL MC SCH (21:28)
[2021-08-29] MEDS ORDERED: ONDANSETRON 4 MG/2 ML VIAL IVPUSH ONE (21:31)
[2021-08-30] MEDS: GABAPENTIN 300 MG CAPSULE PO SCH ×3 (05:42→21:01)
[2021-08-30] MEDS ORDERED: DEXTROSE 5%-WATER - 50 ML IVPB ONE (09:47)
[2021-08-30] MEDS ORDERED: cefTRIAXone SODIUM 1 GM VIAL ONE (09:47)
[2021-08-30] MEDS: DULoxetine HCL 30 MG CAPSULE.DR PO SCH (10:32)
[2021-08-30] MEDS: levETIRAcetam 250 MG TABLET PO SCH ×2 (10:33→21:01)
[2021-08-30] MEDS: CEFTRIAXONE 1 GM in DEXTROSE 5%-WATER - 50 ML IVPB SCH (10:33)
[2021-08-30] MEDS: predniSONE 20 MG TABLET (UD) PO SCH ×2 (10:33→21:01)
[2021-08-30] MEDS: metoPROLOL SUCCINATE 25 MG TAB.SR.24H (FP) PO SCH (10:33)
[2021-08-30] MEDS: PRAMIPEXOLE DIHYDROCHLORIDE 0.25 MG TABLET PO SCH ×2 (10:33→21:02)
[2021-08-30] MEDS: TOPIRAMATE 25 MG TABLET PO SCH ×2 (10:33→21:01)
[2021-08-30] MEDS: METHOCARBAMOL 500 MG TABLET PO PRN (10:33)
[2021-08-30] MEDS: FLUTICASONE/UMECLIDIN/VILANTER(200-62.5-25 TRELEGY ELLIPTA) INAHLER IH SCH (10:34)
[2021-08-30] MEDS ORDERED: ACETAMINOPHEN/CAFFEINE/BUTALBITAL 1 TAB PO ONE (16:51)
[2021-08-30] MEDS: RIVAROXABAN 20 MG TABLET PO SCH (17:28)
[2021-08-30] MEDS ORDERED: traZODone HCL 50 MG TABLET (FP) ONE (20:57)
[2021-08-30] MEDS ORDERED: traZODone HCL 100 MG TABLET (FP) ONE (20:57)
[2021-08-30] MEDS: ATORVASTATIN CA 20 MG TABLET (FP) PO SCH (21:01)
[2021-08-30] MEDS: traZODone HCL 100 MG, traZODone HCL 50 MG PO SCH (21:01)
[2021-08-30] MEDS: MELATONIN 5 MG TABLETS PO PRN (21:02)
[2021-08-30] MEDS: LIDOCAINE PATCH REMOVAL MC SCH (21:02)
[2021-08-31] MEDS: GABAPENTIN 300 MG CAPSULE PO SCH ×3 (06:15→21:27)
[2021-08-31] MEDS ORDERED: cefTRIAXone SODIUM 1 GM VIAL ONE (09:51)
[2021-08-31] MEDS ORDERED: DEXTROSE 5%-WATER - 50 ML IVPB ONE (09:51)
[2021-08-31] MEDS: CEFTRIAXONE 1 GM in DEXTROSE 5%-WATER - 50 ML IVPB SCH (09:53)
[2021-08-31] MEDS: predniSONE 20 MG TABLET (UD) PO SCH ×2 (09:53→21:26)
[2021-08-31] MEDS: metoPROLOL SUCCINATE 25 MG TAB.SR.24H (FP) PO SCH (09:53)
[2021-08-31] MEDS: TOPIRAMATE 25 MG TABLET PO SCH ×2 (09:53→21:26)
[2021-08-31] MEDS: DULoxetine HCL 30 MG CAPSULE.DR PO SCH (09:53)
[2021-08-31] MEDS: levETIRAcetam 250 MG TABLET PO SCH ×2 (09:53→21:27)
[2021-08-31] MEDS: PRAMIPEXOLE DIHYDROCHLORIDE 0.25 MG TABLET PO SCH ×2 (09:54→21:26)
[2021-08-31] MEDS: FLUTICASONE/UMECLIDIN/VILANTER(200-62.5-25 TRELEGY ELLIPTA) INAHLER IH SCH (09:54)
[2021-08-31] MEDS: ACETAMINOPHEN 325 MG TABLET (FP) PO PRN (13:43)
[2021-08-31] MEDS: RIVAROXABAN 20 MG TABLET PO SCH (17:29)
[2021-08-31] MEDS ORDERED: ACETAMINOPHEN/CAFFEINE/BUTALBITAL 1 TAB PO ONE (19:40)
[2021-08-31] MEDS ORDERED: traZODone HCL 50 MG TABLET (FP) ONE (21:03)
[2021-08-31] MEDS ORDERED: traZODone HCL 100 MG TABLET (FP) ONE (21:03)
[2021-08-31] MEDS: MELATONIN 5 MG TABLETS PO PRN (21:26)
[2021-08-31] MEDS: traZODone HCL 100 MG, traZODone HCL 50 MG PO SCH (21:26)
[2021-08-31] MEDS: ATORVASTATIN CA 20 MG TABLET (FP) PO SCH (21:27)
[2021-08-31] MEDS: LIDOCAINE PATCH REMOVAL MC SCH (21:27)
[2021-09-01] MEDS: GABAPENTIN 300 MG CAPSULE PO SCH (05:42)
[2021-09-01] MEDS ORDERED: cefTRIAXone SODIUM 1 GM VIAL ONE (11:12)
[2021-09-01] MEDS ORDERED: DEXTROSE 5%-WATER - 50 ML IVPB ONE (11:12)
[2021-09-01] MEDS: DULoxetine HCL 30 MG CAPSULE.DR PO SCH (11:18)
[2021-09-01] MEDS: predniSONE 20 MG TABLET (UD) PO SCH (11:23)
[2021-09-01] MEDS: levETIRAcetam 250 MG TABLET PO SCH (11:23)
[2021-09-01] MEDS: metoPROLOL SUCCINATE 25 MG TAB.SR.24H (FP) PO SCH (11:24)
[2021-09-01] MEDS: FLUTICASONE/UMECLIDIN/VILANTER(200-62.5-25 TRELEGY ELLIPTA) INAHLER IH SCH (11:24)
[2021-09-01] MEDS: TOPIRAMATE 25 MG TABLET PO SCH (11:24)
[2021-09-01] MEDS: ACETAMINOPHEN 325 MG TABLET (FP) PO PRN (11:25)
[2021-09-01] MEDS: CEFTRIAXONE 1 GM in DEXTROSE 5%-WATER - 50 ML IVPB SCH (11:30)
[2021-09-01] MEDS: PRAMIPEXOLE DIHYDROCHLORIDE 0.25 MG TABLET PO SCH (11:38)
[2021-09-01 16:46] VITALS: BP 126/78; PULSE 66; TEMP 98
== END 2021-09-01 12:15 | DRG 178 ==
LOC: JER 22:00 → JERBED 08-26 01:55 → J4S 08-26 04:08 → OBSVTOIN 08-27 13:39
PROVIDERS: ADMIT Internal Medicine; ATTEND Internal Medicine
PROC: XW033E5 Introduction of Remdesivir Anti-infective into Peripheral Vein, Percutaneous Approach, New Technology Group 5 (ICD-10-PCS; principal; 2021-08-27)
DX: U07.1 COVID-19 (principal); F31.81 Bipolar II disorder; N39.0 Urinary tract infection, site not specified; Z68.41 Body mass index [BMI] 40.0-44.9, adult; J44.9 Chronic obstructive pulmonary disease, unspecified; E78.5 Hyperlipidemia, unspecified; G62.9 Polyneuropathy, unspecified; E66.9 Obesity, unspecified
CPT/HCPCS: 36415; 71045-TC-FY; 80053; 80177; 81003; 82728; 82803; 83615; 83735; 84100; 85025; 85379; 85610; 85730; 86140; 87086; 87186; 87804; 93005; 93010; 97116-GP; 97161-GP; 99285-25; C9399; C9803-CS; G0378; U0003; U0005

== ENCOUNTER 2022-03-14 11:24 | Inpatient (IN) | payer OTHER ==
[2022-03-14 11:51] VITALS: BMI 58.6
[2022-03-14] MEDS ORDERED: ACETAMINOPHEN 500 MG TABLET (FP) PO ONE (12:15)
[2022-03-14] MEDS ORDERED: oxyCODONE HCL 5 MG TABLET PO ONE ×3 (12:23→18:00)
[2022-03-14] MEDS ORDERED: oxyCODONE HCL 5 MG TABLET ONE ×3 (12:26→19:24)
[2022-03-14 12:39] LABS: BASO % 0.9 % (0-2.0); EOS % 2.9 % (0-4.5); HEMATOCRIT 37.5 % (32.4-45.2); HEMOGLOBIN 12.3 GM/dL (10.7-15.3); LYMPH % 18.5 % (8-40); MCH 28.1 pg (25.7-33.7); MCHC 32.7 g/dl (32.0-36.0); MEAN CELL VOLUME 86.1 fl (80-96); MEAN PLT VOLUME 8.6 fl (7.5-11.1); MONO % 8.2 % (3.8-10.2); NEUT % 69.5 % (42.8-82.8); PLATELET COUNT 258 10^3/uL (134-434); RBC 4.36 M/mm3 (3.60-5.2); RDW 14.8 % (11.6-15.6)
[2022-03-14 13:00] LABS: BLOOD UREA NITROGEN 8.7 mg/dL (7-18)
[2022-03-14 13:03] LABS: CREATININE 1.3 mg/dL (0.55-1.3)
[2022-03-14 13:05] LABS: BILIRUBIN,TOTAL 0.3 mg/dL (0.2-1); TOT PROT 6.6 g/dl (6.4-8.2)
[2022-03-14 16:03] LABS: EPI CELLS 9 /uL (0-25.1); HYALINE CASTS 1 /uL (0-3.1); PH,URINE 5.5 (5.0-8.0); URINE APPEARANCE CLEAR; URINE BACTERIA 4849 /uL (0-1359); URINE BILIRUBIN NEGATIVE (NEGATIVE); URINE COLOR YELLOW; URINE GLUCOSE (UA) NEGATIVE (NEGATIVE); URINE KETONE NEGATIVE (NEGATIVE); URINE LEUK ESTERASE 2+ (NEGATIVE); URINE NITRITE POSITIVE (NEGATIVE); URINE PROTEIN NEGATIVE (NEGATIVE); URINE RBC 12 /uL (0-23.9); URINE UROBILINOGEN 0.2 mg/dL (0.2-1.0); URINE WBC 247 /uL (0-25.8)
[2022-03-14] MEDS ORDERED: CEFTRIAXONE 1,000 MG in DEXTROSE 5%-WATER - 50 ML IVPB ONE (17:14)
[2022-03-14] MEDS ORDERED: METHOCARBAMOL 500 MG TABLET PO PRN (17:22)
[2022-03-14] MEDS ORDERED: SENNOSIDES 8.6MG TABLET (FP) PO PRN (17:22)
[2022-03-14] MEDS ORDERED: CEFTRIAXONE 1 GM/50 ML BAG ONE (17:35)
[2022-03-14] MEDS ORDERED: PATIENT'S OWN MEDICATION (NON-FORMULARY) (Ipratropium Bromide [Atrovent Hfa] 12.9 GM Hfa.A IH SCH (18:00)
[2022-03-14] MEDS ORDERED: levETIRAcetam 500 MG TABLET (FP) PO ONE (20:50)
[2022-03-14] MEDS ORDERED: ATORVASTATIN CA 20 MG TABLET (FP) ONE (20:50)
[2022-03-14] MEDS ORDERED: MELATONIN 5 MG TABLETS ONE (20:51)
[2022-03-14] MEDS ORDERED: TOPIRAMATE 25 MG TABLET ONE (20:51)
[2022-03-14] MEDS ORDERED: GABAPENTIN 300 MG CAPSULE ONE (20:51)
[2022-03-14] MEDS ORDERED: ACETAMINOPHEN 325 MG TABLET (FP) ONE (21:07)
[2022-03-14] MEDS: ACETAMINOPHEN 325 MG TABLET (FP) PO PRN (21:10)
[2022-03-14] MEDS: levETIRAcetam 500 MG TABLET (FP) PO SCH (21:11)
[2022-03-14] MEDS: MELATONIN 5 MG TABLETS PO SCH (21:11)
[2022-03-14] MEDS: GABAPENTIN 300 MG CAPSULE PO SCH (21:11)
[2022-03-14] MEDS: BENZOCAINE/MENTHOL (CHLORASEPTIC ) LOZENGE MM SCH (21:11)
[2022-03-14] MEDS: PRAMIPEXOLE DIHYDROCHLORIDE 0.25 MG TABLET PO SCH (21:11)
[2022-03-14] MEDS: NYSTATIN POWDER 100,000 UNITS/GM - 15 GM TOPICAL POWDER TP SCH (21:11)
[2022-03-14] MEDS: ATORVASTATIN CA 20 MG TABLET (FP) PO SCH (21:11)
[2022-03-14] MEDS: TOPIRAMATE 25 MG TABLET PO SCH (21:11)
[2022-03-14] MEDS ORDERED: traZODone HCL 100 MG TABLET (FP) PO SCH (22:00)
[2022-03-15] MEDS: GABAPENTIN 300 MG CAPSULE PO SCH ×3 (06:41→21:26)
[2022-03-15] MEDS: ACETAMINOPHEN 325 MG TABLET (FP) PO PRN (08:51)
[2022-03-15 08:54] LABS: BASO % 0.6 % (0-2.0); EOS % 2.5 % (0-4.5); HEMATOCRIT 36.4 % (32.4-45.2); HEMOGLOBIN 12.2 GM/dL (10.7-15.3); LYMPH % 15.3 % (8-40); MCH 28.5 pg (25.7-33.7); MCHC 33.6 g/dl (32.0-36.0); MEAN CELL VOLUME 84.8 fl (80-96); MEAN PLT VOLUME 8.5 fl (7.5-11.1); MONO % 7.7 % (3.8-10.2); NEUT % 73.9 % (42.8-82.8); PLATELET COUNT 223 10^3/uL (134-434); RBC 4.29 M/mm3 (3.60-5.2); RDW 14.9 % (11.6-15.6); WHITE BLOOD COUNT 8.2 K/mm3 (4.0-10.0)
[2022-03-15 09:18] LABS: BLOOD UREA NITROGEN 10.9 mg/dL (7-18)
[2022-03-15 09:19] LABS: CALCIUM 9.4 mg/dL (8.5-10.1)
[2022-03-15 09:21] LABS: CREATININE 1.4 mg/dL (0.55-1.3)
[2022-03-15] MEDS ORDERED: FAMOTIDINE 40 MG TABLET PO SCH (10:00)
[2022-03-15] MEDS: DULoxetine HCL 30 MG CAPSULE.DR PO SCH (10:49)
[2022-03-15] MEDS: CEFTRIAXONE 1 GM in DEXTROSE 5%-WATER - 50 ML IVPB SCH (10:49)
[2022-03-15] MEDS: TOPIRAMATE 25 MG TABLET PO SCH ×2 (10:50→21:27)
[2022-03-15] MEDS: metoPROLOL SUCCINATE 25 MG TAB.SR.24H (FP) PO SCH (10:50)
[2022-03-15] MEDS: BENZOCAINE/MENTHOL (CHLORASEPTIC ) LOZENGE MM SCH ×4 (10:50→21:25)
[2022-03-15] MEDS: CHOLECALCIFEROL (VIT D3) 1,000 UNIT (25 MCG) TABLET PO SCH (10:50)
[2022-03-15] MEDS: NYSTATIN POWDER 100,000 UNITS/GM - 15 GM TOPICAL POWDER TP SCH ×2 (10:50→21:28)
[2022-03-15] MEDS: PRAMIPEXOLE DIHYDROCHLORIDE 0.25 MG TABLET PO SCH ×2 (10:50→21:27)
[2022-03-15] MEDS: levETIRAcetam 500 MG TABLET (FP) PO SCH ×2 (10:50→21:26)
[2022-03-15] MEDS: oxyCODONE HCL 5 MG TABLET PO PRN ×2 (11:17→17:30)
[2022-03-15] MEDS: LIDOCAINE 5% TOPICAL PATCH TP SCH (13:34)
[2022-03-15] MEDS: FAMOTIDINE 20 MG TABLET PO SCH (14:15)
[2022-03-15] MEDS: FLUTICASONE/UMECLIDIN/VILANTER(200-62.5-25 TRELEGY ELLIPTA) INAHLER IH SCH (14:15)
[2022-03-15] MEDS: METHOCARBAMOL 500 MG TABLET PO SCH ×2 (14:16→21:27)
[2022-03-15] MEDS: RIVAROXABAN 20 MG TABLET PO SCH (17:31)
[2022-03-15] MEDS: traZODone HCL 50 MG TABLET (FP) PO SCH (21:26)
[2022-03-15] MEDS: MELATONIN 5 MG TABLETS PO SCH (21:26)
[2022-03-15] MEDS: ATORVASTATIN CA 20 MG TABLET (FP) PO SCH (21:27)
[2022-03-15] MEDS: LIDOCAINE PATCH REMOVAL MC SCH (21:27)
[2022-03-16] MEDS: GABAPENTIN 300 MG CAPSULE PO SCH ×3 (05:48→21:41)
[2022-03-16] MEDS: METHOCARBAMOL 500 MG TABLET PO SCH ×3 (05:49→21:41)
[2022-03-16] MEDS: oxyCODONE HCL 5 MG TABLET PO PRN (09:37)
[2022-03-16] MEDS: CEFTRIAXONE 1 GM in DEXTROSE 5%-WATER - 50 ML IVPB SCH (09:38)
[2022-03-16] MEDS: DULoxetine HCL 30 MG CAPSULE.DR PO SCH (09:39)
[2022-03-16] MEDS: PRAMIPEXOLE DIHYDROCHLORIDE 0.25 MG TABLET PO SCH ×2 (09:40→21:41)
[2022-03-16] MEDS: levETIRAcetam 500 MG TABLET (FP) PO SCH ×2 (09:40→21:41)
[2022-03-16] MEDS: LIDOCAINE 5% TOPICAL PATCH TP SCH (09:41)
[2022-03-16] MEDS: BENZOCAINE/MENTHOL (CHLORASEPTIC ) LOZENGE MM SCH ×4 (09:42→21:44)
[2022-03-16] MEDS: metoPROLOL SUCCINATE 25 MG TAB.SR.24H (FP) PO SCH (09:44)
[2022-03-16] MEDS: FAMOTIDINE 20 MG TABLET PO SCH (09:44)
[2022-03-16] MEDS: NYSTATIN POWDER 100,000 UNITS/GM - 15 GM TOPICAL POWDER TP SCH ×2 (09:45→21:44)
[2022-03-16] MEDS: TOPIRAMATE 25 MG TABLET PO SCH ×2 (09:45→22:22)
[2022-03-16] MEDS: FLUTICASONE/UMECLIDIN/VILANTER(200-62.5-25 TRELEGY ELLIPTA) INAHLER IH SCH (09:47)
[2022-03-16] MEDS: CHOLECALCIFEROL (VIT D3) 1,000 UNIT (25 MCG) TABLET PO SCH (09:47)
[2022-03-16] MEDS: RIVAROXABAN 20 MG TABLET PO SCH (17:16)
[2022-03-16] MEDS: ERTAPENEM SODIUM 1 GM in SODIUM CHLORIDE 50 ML IVPB SCH (17:16)
[2022-03-16] MEDS: MELATONIN 5 MG TABLETS PO SCH (21:40)
[2022-03-16] MEDS: ATORVASTATIN CA 20 MG TABLET (FP) PO SCH (21:41)
[2022-03-16] MEDS: LIDOCAINE PATCH REMOVAL MC SCH (21:41)
[2022-03-16] MEDS: traZODone HCL 50 MG TABLET (FP) PO SCH (21:41)
[2022-03-17] MEDS: GABAPENTIN 300 MG CAPSULE PO SCH ×3 (06:16→21:34)
[2022-03-17] MEDS: METHOCARBAMOL 500 MG TABLET PO SCH ×3 (06:16→21:35)
[2022-03-17] MEDS: BENZOCAINE/MENTHOL (CHLORASEPTIC ) LOZENGE MM SCH ×4 (10:20→21:36)
[2022-03-17] MEDS: LIDOCAINE 5% TOPICAL PATCH TP SCH (10:21)
[2022-03-17] MEDS: ERTAPENEM SODIUM 1 GM in SODIUM CHLORIDE 50 ML IVPB SCH (10:22)
[2022-03-17] MEDS: DULoxetine HCL 30 MG CAPSULE.DR PO SCH (10:23)
[2022-03-17] MEDS: FAMOTIDINE 20 MG TABLET PO SCH (10:23)
[2022-03-17] MEDS: metoPROLOL SUCCINATE 25 MG TAB.SR.24H (FP) PO SCH (10:23)
[2022-03-17] MEDS: TOPIRAMATE 25 MG TABLET PO SCH ×2 (10:23→21:38)
[2022-03-17] MEDS: CHOLECALCIFEROL (VIT D3) 1,000 UNIT (25 MCG) TABLET PO SCH (10:23)
[2022-03-17] MEDS: NYSTATIN POWDER 100,000 UNITS/GM - 15 GM TOPICAL POWDER TP SCH ×2 (10:24→21:36)
[2022-03-17] MEDS: levETIRAcetam 500 MG TABLET (FP) PO SCH ×2 (10:24→21:35)
[2022-03-17] MEDS: PRAMIPEXOLE DIHYDROCHLORIDE 0.25 MG TABLET PO SCH ×2 (10:24→21:35)
[2022-03-17] MEDS: FLUTICASONE/UMECLIDIN/VILANTER(200-62.5-25 TRELEGY ELLIPTA) INAHLER IH SCH (10:24)
[2022-03-17] MEDS: oxyCODONE HCL 5 MG TABLET PO PRN (10:25)
[2022-03-17] MEDS: POLYETHYLENE GLYCOL (HEALTHYLAX) 3350 17 GM PACKET PO SCH ×2 (14:37→21:34)
[2022-03-17] MEDS: RIVAROXABAN 20 MG TABLET PO SCH (18:03)
[2022-03-17] MEDS: traZODone HCL 50 MG TABLET (FP) PO SCH (21:34)
[2022-03-17] MEDS: ATORVASTATIN CA 20 MG TABLET (FP) PO SCH (21:35)
[2022-03-17] MEDS: MELATONIN 5 MG TABLETS PO SCH (21:35)
[2022-03-17] MEDS: LIDOCAINE PATCH REMOVAL MC SCH (21:36)
[2022-03-17] MEDS ORDERED: oxyCODONE HCL 5 MG TABLET PO PRN (23:32)
[2022-03-18] MEDS: GABAPENTIN 300 MG CAPSULE PO SCH ×3 (06:22→21:04)
[2022-03-18] MEDS: ACETAMINOPHEN 325 MG TABLET (FP) PO PRN (08:20)
[2022-03-18] MEDS ORDERED: METHOCARBAMOL 500 MG TABLET PO SCH ×2 (10:00→11:45)
[2022-03-18] MEDS: NYSTATIN POWDER 100,000 UNITS/GM - 15 GM TOPICAL POWDER TP SCH ×2 (10:06→23:00)
[2022-03-18] MEDS: FLUTICASONE/UMECLIDIN/VILANTER(200-62.5-25 TRELEGY ELLIPTA) INAHLER IH SCH (10:07)
[2022-03-18] MEDS: FAMOTIDINE 20 MG TABLET PO SCH (10:46)
[2022-03-18] MEDS: BENZOCAINE/MENTHOL (CHLORASEPTIC ) LOZENGE MM SCH ×3 (10:46→17:23)
[2022-03-18] MEDS: levETIRAcetam 500 MG TABLET (FP) PO SCH ×2 (10:47→21:03)
[2022-03-18] MEDS: TOPIRAMATE 25 MG TABLET PO SCH ×2 (10:47→21:09)
[2022-03-18] MEDS: DULoxetine HCL 30 MG CAPSULE.DR PO SCH (10:47)
[2022-03-18] MEDS: PRAMIPEXOLE DIHYDROCHLORIDE 0.25 MG TABLET PO SCH ×2 (10:47→21:03)
[2022-03-18] MEDS: metoPROLOL SUCCINATE 25 MG TAB.SR.24H (FP) PO SCH (10:47)
[2022-03-18] MEDS: CHOLECALCIFEROL (VIT D3) 1,000 UNIT (25 MCG) TABLET PO SCH (10:48)
[2022-03-18] MEDS: ERTAPENEM SODIUM 1 GM in SODIUM CHLORIDE 50 ML IVPB SCH (10:48)
[2022-03-18] MEDS: POLYETHYLENE GLYCOL (HEALTHYLAX) 3350 17 GM PACKET PO SCH ×2 (10:48→21:03)
[2022-03-18] MEDS: LIDOCAINE 5% TOPICAL PATCH TP SCH (10:48)
[2022-03-18] MEDS ORDERED: ACETAMINOPHEN WITH CODEINE 300MG/30MG TABLET PO PRN (11:41)
[2022-03-18] MEDS: RIVAROXABAN 20 MG TABLET PO SCH (17:23)
[2022-03-18] MEDS: ACETAMINOPHEN 500 MG TABLET (FP) PO PRN (17:24)
[2022-03-18] MEDS: METHOCARBAMOL 500 MG TABLET PO PRN (19:52)
[2022-03-18] MEDS: traZODone HCL 50 MG TABLET (FP) PO SCH (21:03)
[2022-03-18] MEDS: ATORVASTATIN CA 20 MG TABLET (FP) PO SCH (21:04)
[2022-03-18 21:25] LABS: BASO % 0.8 % (0-2.0); EOS % 2.8 % (0-4.5); HEMATOCRIT 36.9 % (32.4-45.2); HEMOGLOBIN 11.9 GM/dL (10.7-15.3); LYMPH % 18.4 % (8-40); MCH 27.7 pg (25.7-33.7); MCHC 32.3 g/dl (32.0-36.0); MEAN CELL VOLUME 85.6 fl (80-96); MEAN PLT VOLUME 8.6 fl (7.5-11.1); PLATELET COUNT 250 10^3/uL (134-434); RBC 4.31 M/mm3 (3.60-5.2); RDW 14.6 % (11.6-15.6); WHITE BLOOD COUNT 7.1 K/mm3 (4.0-10.0)
[2022-03-18 21:52] LABS: ALBUMIN 2.9 g/dl (3.4-5.0)
[2022-03-18 21:53] LABS: CALCIUM 8.7 mg/dL (8.5-10.1)
[2022-03-18 21:54] LABS: BLOOD UREA NITROGEN 10.1 mg/dL (7-18)
[2022-03-18 21:56] LABS: CREATININE 1.2 mg/dL (0.55-1.3)
[2022-03-18 21:58] LABS: BILIRUBIN,TOTAL 0.2 mg/dL (0.2-1); TOT PROT 6.6 g/dl (6.4-8.2)
[2022-03-19] MEDS: BENZOCAINE/MENTHOL (CHLORASEPTIC ) LOZENGE MM SCH ×5 (00:51→23:45)
[2022-03-19] MEDS: LIDOCAINE PATCH REMOVAL MC SCH ×2 (00:52→23:47)
[2022-03-19] MEDS: ACETAMINOPHEN 500 MG TABLET (FP) PO PRN (02:42)
[2022-03-19] MEDS: GABAPENTIN 300 MG CAPSULE PO SCH ×3 (07:05→23:38)
[2022-03-19 09:57] LABS: EOS % 4.2 % (0-4.5); HEMATOCRIT 35.3 % (32.4-45.2); HEMOGLOBIN 11.6 GM/dL (10.7-15.3); LYMPH % 25.4 % (8-40); MCH 27.9 pg (25.7-33.7); MEAN CELL VOLUME 84.6 fl (80-96); MEAN PLT VOLUME 8.5 fl (7.5-11.1); MONO % 7.5 % (3.8-10.2); NEUT % 61.9 % (42.8-82.8); PLATELET COUNT 259 10^3/uL (134-434); RBC 4.17 M/mm3 (3.60-5.2); RDW 14.9 % (11.6-15.6); WHITE BLOOD COUNT 6.2 K/mm3 (4.0-10.0)
[2022-03-19 10:30] LABS: CALCIUM 8.8 mg/dL (8.5-10.1)
[2022-03-19 10:31] LABS: ALBUMIN 2.8 g/dl (3.4-5.0); BLOOD UREA NITROGEN 10.9 mg/dL (7-18)
[2022-03-19 10:34] LABS: CREATININE 1.2 mg/dL (0.55-1.3)
[2022-03-19 10:36] LABS: BILIRUBIN,TOTAL 0.4 mg/dL (0.2-1); TOT PROT 6.4 g/dl (6.4-8.2)
[2022-03-19] MEDS: POLYETHYLENE GLYCOL (HEALTHYLAX) 3350 17 GM PACKET PO SCH ×2 (12:16→23:47)
[2022-03-19] MEDS: ERTAPENEM SODIUM 1 GM in SODIUM CHLORIDE 50 ML IVPB SCH (12:17)
[2022-03-19] MEDS: levETIRAcetam 500 MG TABLET (FP) PO SCH ×2 (12:18→23:38)
[2022-03-19] MEDS: FAMOTIDINE 20 MG TABLET PO SCH (12:18)
[2022-03-19] MEDS: DULoxetine HCL 30 MG CAPSULE.DR PO SCH (12:18)
[2022-03-19] MEDS: LIDOCAINE 5% TOPICAL PATCH TP SCH (12:19)
[2022-03-19] MEDS: NYSTATIN POWDER 100,000 UNITS/GM - 15 GM TOPICAL POWDER TP SCH ×2 (12:20→23:45)
[2022-03-19] MEDS: METHOCARBAMOL 500 MG TABLET PO PRN (12:20)
[2022-03-19] MEDS: metoPROLOL SUCCINATE 25 MG TAB.SR.24H (FP) PO SCH (12:20)
[2022-03-19] MEDS: CHOLECALCIFEROL (VIT D3) 1,000 UNIT (25 MCG) TABLET PO SCH (12:20)
[2022-03-19] MEDS: FLUTICASONE/UMECLIDIN/VILANTER(200-62.5-25 TRELEGY ELLIPTA) INAHLER IH SCH (12:21)
[2022-03-19] MEDS: PRAMIPEXOLE DIHYDROCHLORIDE 0.25 MG TABLET PO SCH ×2 (12:21→23:38)
[2022-03-19] MEDS: TOPIRAMATE 25 MG TABLET PO SCH ×2 (12:23→23:40)
[2022-03-19] MEDS: RIVAROXABAN 20 MG TABLET PO SCH (17:11)
[2022-03-19] MEDS: ATORVASTATIN CA 20 MG TABLET (FP) PO SCH (23:38)
[2022-03-19] MEDS: traZODone HCL 50 MG TABLET (FP) PO SCH (23:39)
[2022-03-20] MEDS: METHOCARBAMOL 500 MG TABLET PO PRN (02:14)
[2022-03-20] MEDS: GABAPENTIN 300 MG CAPSULE PO SCH (05:49)
[2022-03-20] MEDS: BENZOCAINE/MENTHOL (CHLORASEPTIC ) LOZENGE MM SCH ×4 (10:16→21:47)
[2022-03-20] MEDS: ERTAPENEM SODIUM 1 GM in SODIUM CHLORIDE 50 ML IVPB SCH (10:59)
[2022-03-20] MEDS: ACETAMINOPHEN 500 MG TABLET (FP) PO PRN (11:00)
[2022-03-20] MEDS: metoPROLOL SUCCINATE 25 MG TAB.SR.24H (FP) PO SCH (11:01)
[2022-03-20] MEDS: TOPIRAMATE 25 MG TABLET PO SCH ×2 (11:01→21:47)
[2022-03-20] MEDS: CHOLECALCIFEROL (VIT D3) 1,000 UNIT (25 MCG) TABLET PO SCH (11:01)
[2022-03-20] MEDS: FAMOTIDINE 20 MG TABLET PO SCH (11:01)
[2022-03-20] MEDS: NYSTATIN POWDER 100,000 UNITS/GM - 15 GM TOPICAL POWDER TP SCH ×2 (11:02→21:49)
[2022-03-20] MEDS: LIDOCAINE 5% TOPICAL PATCH TP SCH (11:02)
[2022-03-20] MEDS: levETIRAcetam 500 MG TABLET (FP) PO SCH ×2 (11:02→21:44)
[2022-03-20] MEDS: POLYETHYLENE GLYCOL (HEALTHYLAX) 3350 17 GM PACKET PO SCH ×2 (11:02→21:44)
[2022-03-20] MEDS: DULoxetine HCL 30 MG CAPSULE.DR PO SCH (11:02)
[2022-03-20] MEDS: PRAMIPEXOLE DIHYDROCHLORIDE 0.25 MG TABLET PO SCH ×2 (11:03→21:44)
[2022-03-20] MEDS: FLUTICASONE/UMECLIDIN/VILANTER(200-62.5-25 TRELEGY ELLIPTA) INAHLER IH SCH (11:03)
[2022-03-20] MEDS: GABAPENTIN 100 MG CAPSULE PO SCH ×2 (14:00→21:44)
[2022-03-20] MEDS ORDERED: MAG HYDROX/AL HYDROX/SIMETH 30 ML UNIT-DOSE CUP PO ONE (18:07)
[2022-03-20] MEDS: RIVAROXABAN 20 MG TABLET PO SCH (18:12)
[2022-03-20] MEDS: ATORVASTATIN CA 20 MG TABLET (FP) PO SCH (21:43)
[2022-03-20] MEDS: traZODone HCL 50 MG TABLET (FP) PO SCH (21:43)
[2022-03-20] MEDS: LIDOCAINE PATCH REMOVAL MC SCH (21:49)
[2022-03-21] MEDS: GABAPENTIN 100 MG CAPSULE PO SCH ×2 (05:42→21:58)
[2022-03-21] MEDS: BENZOCAINE/MENTHOL (CHLORASEPTIC ) LOZENGE MM SCH ×4 (12:37→22:00)
[2022-03-21] MEDS: POLYETHYLENE GLYCOL (HEALTHYLAX) 3350 17 GM PACKET PO SCH ×2 (12:39→21:59)
[2022-03-21] MEDS: ERTAPENEM SODIUM 1 GM in SODIUM CHLORIDE 50 ML IVPB SCH (12:39)
[2022-03-21] MEDS: DULoxetine HCL 30 MG CAPSULE.DR PO SCH (12:40)
[2022-03-21] MEDS: levETIRAcetam 500 MG TABLET (FP) PO SCH ×2 (12:41→21:59)
[2022-03-21] MEDS: LIDOCAINE 5% TOPICAL PATCH TP SCH (12:42)
[2022-03-21] MEDS: FAMOTIDINE 20 MG TABLET PO SCH (12:42)
[2022-03-21] MEDS: metoPROLOL SUCCINATE 25 MG TAB.SR.24H (FP) PO SCH (12:43)
[2022-03-21] MEDS: PRAMIPEXOLE DIHYDROCHLORIDE 0.25 MG TABLET PO SCH ×2 (12:43→21:59)
[2022-03-21] MEDS: NYSTATIN POWDER 100,000 UNITS/GM - 15 GM TOPICAL POWDER TP SCH ×2 (12:43→22:00)
[2022-03-21] MEDS: CHOLECALCIFEROL (VIT D3) 1,000 UNIT (25 MCG) TABLET PO SCH (12:44)
[2022-03-21] MEDS: ACETAMINOPHEN 500 MG TABLET (FP) PO PRN (12:44)
[2022-03-21] MEDS: FLUTICASONE/UMECLIDIN/VILANTER(200-62.5-25 TRELEGY ELLIPTA) INAHLER IH SCH (12:44)
[2022-03-21] MEDS: TOPIRAMATE 25 MG TABLET PO SCH ×2 (12:46→22:30)
[2022-03-21] MEDS: RIVAROXABAN 20 MG TABLET PO SCH (18:04)
[2022-03-21] MEDS: ATORVASTATIN CA 20 MG TABLET (FP) PO SCH (21:58)
[2022-03-21] MEDS: traZODone HCL 50 MG TABLET (FP) PO SCH (21:58)
[2022-03-21] MEDS: LIDOCAINE PATCH REMOVAL MC SCH (21:59)
[2022-03-22] MEDS: LIDOCAINE 5% TOPICAL PATCH TP SCH ×2 (10:14→11:25)
[2022-03-22] MEDS: BENZOCAINE/MENTHOL (CHLORASEPTIC ) LOZENGE MM SCH ×4 (11:22→22:21)
[2022-03-22] MEDS: POLYETHYLENE GLYCOL (HEALTHYLAX) 3350 17 GM PACKET PO SCH ×2 (11:23→22:21)
[2022-03-22] MEDS: levETIRAcetam 500 MG TABLET (FP) PO SCH ×2 (11:23→22:21)
[2022-03-22] MEDS: ERTAPENEM SODIUM 1 GM in SODIUM CHLORIDE 50 ML IVPB SCH (11:23)
[2022-03-22] MEDS: TOPIRAMATE 25 MG TABLET PO SCH ×2 (11:24→22:54)
[2022-03-22] MEDS: NYSTATIN POWDER 100,000 UNITS/GM - 15 GM TOPICAL POWDER TP SCH ×2 (11:24→22:22)
[2022-03-22] MEDS: GABAPENTIN 100 MG CAPSULE PO SCH ×2 (11:24→22:20)
[2022-03-22] MEDS: FAMOTIDINE 20 MG TABLET PO SCH (11:24)
[2022-03-22] MEDS: metoPROLOL SUCCINATE 25 MG TAB.SR.24H (FP) PO SCH (11:25)
[2022-03-22] MEDS: PRAMIPEXOLE DIHYDROCHLORIDE 0.25 MG TABLET PO SCH ×2 (11:25→22:20)
[2022-03-22] MEDS: CHOLECALCIFEROL (VIT D3) 1,000 UNIT (25 MCG) TABLET PO SCH (11:25)
[2022-03-22] MEDS: ACETAMINOPHEN 500 MG TABLET (FP) PO PRN (11:26)
[2022-03-22] MEDS: FLUTICASONE/UMECLIDIN/VILANTER(200-62.5-25 TRELEGY ELLIPTA) INAHLER IH SCH (11:26)
[2022-03-22] MEDS: DULoxetine HCL 30 MG CAPSULE.DR PO SCH (11:27)
[2022-03-22] MEDS: CLOTRIMAZOLE/BETAMET DIPROP 15 GM TUBE TP SCH ×2 (14:44→22:23)
[2022-03-22] MEDS: RIVAROXABAN 20 MG TABLET PO SCH (17:44)
[2022-03-22] MEDS: traZODone HCL 50 MG TABLET (FP) PO SCH (22:19)
[2022-03-22] MEDS: ATORVASTATIN CA 20 MG TABLET (FP) PO SCH (22:19)
[2022-03-22] MEDS: METHOCARBAMOL 500 MG TABLET PO PRN (22:19)
[2022-03-22] MEDS: LIDOCAINE PATCH REMOVAL MC SCH (22:23)
[2022-03-23] MEDS: BENZOCAINE/MENTHOL (CHLORASEPTIC ) LOZENGE MM SCH ×4 (11:06→22:49)
[2022-03-23] MEDS: POLYETHYLENE GLYCOL (HEALTHYLAX) 3350 17 GM PACKET PO SCH ×3 (11:07→22:55)
[2022-03-23] MEDS: CHOLECALCIFEROL (VIT D3) 1,000 UNIT (25 MCG) TABLET PO SCH (11:08)
[2022-03-23] MEDS: TOPIRAMATE 25 MG TABLET PO SCH ×2 (11:08→22:49)
[2022-03-23] MEDS: NYSTATIN POWDER 100,000 UNITS/GM - 15 GM TOPICAL POWDER TP SCH ×2 (11:08→22:51)
[2022-03-23] MEDS: metoPROLOL SUCCINATE 25 MG TAB.SR.24H (FP) PO SCH (11:08)
[2022-03-23] MEDS: FAMOTIDINE 20 MG TABLET PO SCH (11:08)
[2022-03-23] MEDS: GABAPENTIN 100 MG CAPSULE PO SCH ×2 (11:08→22:48)
[2022-03-23] MEDS: ERTAPENEM SODIUM 1 GM in SODIUM CHLORIDE 50 ML IVPB SCH (11:09)
[2022-03-23] MEDS: DULoxetine HCL 30 MG CAPSULE.DR PO SCH (11:09)
[2022-03-23] MEDS: PRAMIPEXOLE DIHYDROCHLORIDE 0.25 MG TABLET PO SCH ×2 (11:09→22:48)
[2022-03-23] MEDS: LIDOCAINE 5% TOPICAL PATCH TP SCH (11:09)
[2022-03-23] MEDS: levETIRAcetam 500 MG TABLET (FP) PO SCH ×2 (11:09→22:48)
[2022-03-23] MEDS: CLOTRIMAZOLE/BETAMET DIPROP 15 GM TUBE TP SCH ×2 (11:10→22:51)
[2022-03-23] MEDS: FLUTICASONE/UMECLIDIN/VILANTER(200-62.5-25 TRELEGY ELLIPTA) INAHLER IH SCH (11:10)
[2022-03-23] MEDS: ACETAMINOPHEN 500 MG TABLET (FP) PO PRN (12:01)
[2022-03-23] MEDS: RIVAROXABAN 20 MG TABLET PO SCH (17:57)
[2022-03-23] MEDS: ATORVASTATIN CA 20 MG TABLET (FP) PO SCH (22:48)
[2022-03-23] MEDS: traZODone HCL 50 MG TABLET (FP) PO SCH (22:48)
[2022-03-23] MEDS: LIDOCAINE PATCH REMOVAL MC SCH (22:50)
[2022-03-24] MEDS: POLYETHYLENE GLYCOL (HEALTHYLAX) 3350 17 GM PACKET PO SCH ×3 (10:52→22:37)
[2022-03-24] MEDS: CHOLECALCIFEROL (VIT D3) 1,000 UNIT (25 MCG) TABLET PO SCH (10:52)
[2022-03-24] MEDS: DULoxetine HCL 30 MG CAPSULE.DR PO SCH (10:52)
[2022-03-24] MEDS: levETIRAcetam 500 MG TABLET (FP) PO SCH ×2 (10:52→22:37)
[2022-03-24] MEDS: GABAPENTIN 100 MG CAPSULE PO SCH ×2 (10:53→22:37)
[2022-03-24] MEDS: metoPROLOL SUCCINATE 25 MG TAB.SR.24H (FP) PO SCH (10:53)
[2022-03-24] MEDS: PRAMIPEXOLE DIHYDROCHLORIDE 0.25 MG TABLET PO SCH ×2 (10:53→22:37)
[2022-03-24] MEDS: FAMOTIDINE 20 MG TABLET PO SCH (10:53)
[2022-03-24] MEDS: TOPIRAMATE 25 MG TABLET PO SCH ×2 (11:12→22:38)
[2022-03-24] MEDS: BENZOCAINE/MENTHOL (CHLORASEPTIC ) LOZENGE MM SCH ×5 (11:12→22:46)
[2022-03-24] MEDS: NYSTATIN POWDER 100,000 UNITS/GM - 15 GM TOPICAL POWDER TP SCH ×2 (11:14→22:39)
[2022-03-24] MEDS: FLUTICASONE/UMECLIDIN/VILANTER(200-62.5-25 TRELEGY ELLIPTA) INAHLER IH SCH (11:14)
[2022-03-24] MEDS: CLOTRIMAZOLE/BETAMET DIPROP 15 GM TUBE TP SCH ×2 (11:14→22:40)
[2022-03-24] MEDS: LIDOCAINE 5% TOPICAL PATCH TP SCH (11:21)
[2022-03-24] MEDS: ACETAMINOPHEN 500 MG TABLET (FP) PO PRN (14:33)
[2022-03-24] MEDS: RIVAROXABAN 20 MG TABLET PO SCH (18:34)
[2022-03-24] MEDS: traZODone HCL 50 MG TABLET (FP) PO SCH (22:36)
[2022-03-24] MEDS: ATORVASTATIN CA 20 MG TABLET (FP) PO SCH (22:37)
[2022-03-24] MEDS: LIDOCAINE PATCH REMOVAL MC SCH (22:38)
[2022-03-25] MEDS: ACETAMINOPHEN 500 MG TABLET (FP) PO PRN (11:08)
[2022-03-25] MEDS: DULoxetine HCL 30 MG CAPSULE.DR PO SCH (11:10)
[2022-03-25] MEDS: PRAMIPEXOLE DIHYDROCHLORIDE 0.25 MG TABLET PO SCH ×2 (11:10→23:25)
[2022-03-25] MEDS: FAMOTIDINE 20 MG TABLET PO SCH (11:10)
[2022-03-25] MEDS: levETIRAcetam 500 MG TABLET (FP) PO SCH ×2 (11:10→23:25)
[2022-03-25] MEDS: GABAPENTIN 100 MG CAPSULE PO SCH ×2 (11:11→23:26)
[2022-03-25] MEDS: POLYETHYLENE GLYCOL (HEALTHYLAX) 3350 17 GM PACKET PO SCH ×2 (11:12→23:27)
[2022-03-25] MEDS: LIDOCAINE 5% TOPICAL PATCH TP SCH (11:12)
[2022-03-25] MEDS: CHOLECALCIFEROL (VIT D3) 1,000 UNIT (25 MCG) TABLET PO SCH (11:12)
[2022-03-25] MEDS: TOPIRAMATE 25 MG TABLET PO SCH ×2 (11:12→23:27)
[2022-03-25] MEDS: NYSTATIN POWDER 100,000 UNITS/GM - 15 GM TOPICAL POWDER TP SCH ×2 (11:13→23:27)
[2022-03-25] MEDS: CLOTRIMAZOLE/BETAMET DIPROP 15 GM TUBE TP SCH ×2 (11:13→23:28)
[2022-03-25] MEDS: FLUTICASONE/UMECLIDIN/VILANTER(200-62.5-25 TRELEGY ELLIPTA) INAHLER IH SCH (11:14)
[2022-03-25] MEDS: metoPROLOL SUCCINATE 25 MG TAB.SR.24H (FP) PO SCH (11:14)
[2022-03-25] MEDS: BENZOCAINE/MENTHOL (CHLORASEPTIC ) LOZENGE MM SCH ×4 (11:15→23:27)
[2022-03-25] MEDS: RIVAROXABAN 20 MG TABLET PO SCH (18:17)
[2022-03-25] MEDS ORDERED: ARTIFICIAL TEARS (POLYVINYL ALCOHOL) OPTH DROPS OU PRN (23:25)
[2022-03-25] MEDS: ATORVASTATIN CA 20 MG TABLET (FP) PO SCH (23:26)
[2022-03-25] MEDS: traZODone HCL 50 MG TABLET (FP) PO SCH (23:26)
[2022-03-25] MEDS: LIDOCAINE PATCH REMOVAL MC SCH (23:27)
[2022-03-26] MEDS: DULoxetine HCL 30 MG CAPSULE.DR PO SCH (12:38)
[2022-03-26] MEDS: levETIRAcetam 500 MG TABLET (FP) PO SCH ×2 (12:38→21:06)
[2022-03-26] MEDS: metoPROLOL SUCCINATE 25 MG TAB.SR.24H (FP) PO SCH (12:38)
[2022-03-26] MEDS: BENZOCAINE/MENTHOL (CHLORASEPTIC ) LOZENGE MM SCH ×4 (12:38→21:14)
[2022-03-26] MEDS: PRAMIPEXOLE DIHYDROCHLORIDE 0.25 MG TABLET PO SCH ×2 (12:38→21:07)
[2022-03-26] MEDS: FAMOTIDINE 20 MG TABLET PO SCH (12:39)
[2022-03-26] MEDS: TOPIRAMATE 25 MG TABLET PO SCH ×2 (12:39→21:10)
[2022-03-26] MEDS: GABAPENTIN 100 MG CAPSULE PO SCH ×2 (12:39→21:07)
[2022-03-26] MEDS: CHOLECALCIFEROL (VIT D3) 1,000 UNIT (25 MCG) TABLET PO SCH (12:39)
[2022-03-26] MEDS: LIDOCAINE 5% TOPICAL PATCH TP SCH (12:40)
[2022-03-26] MEDS: NYSTATIN POWDER 100,000 UNITS/GM - 15 GM TOPICAL POWDER TP SCH ×2 (12:40→21:13)
[2022-03-26] MEDS: POLYETHYLENE GLYCOL (HEALTHYLAX) 3350 17 GM PACKET PO SCH ×2 (12:40→21:08)
[2022-03-26] MEDS: CLOTRIMAZOLE/BETAMET DIPROP 15 GM TUBE TP SCH ×2 (12:40→22:00)
[2022-03-26] MEDS: FLUTICASONE/UMECLIDIN/VILANTER(200-62.5-25 TRELEGY ELLIPTA) INAHLER IH SCH (12:41)
[2022-03-26] MEDS: RIVAROXABAN 20 MG TABLET PO SCH (18:03)
[2022-03-26] MEDS: traZODone HCL 50 MG TABLET (FP) PO SCH (21:07)
[2022-03-26] MEDS: ATORVASTATIN CA 20 MG TABLET (FP) PO SCH (21:07)
[2022-03-26] MEDS: LIDOCAINE PATCH REMOVAL MC SCH (21:13)
[2022-03-27] MEDS: BENZOCAINE/MENTHOL (CHLORASEPTIC ) LOZENGE MM SCH ×4 (10:58→22:43)
[2022-03-27] MEDS: LIDOCAINE 5% TOPICAL PATCH TP SCH (11:00)
[2022-03-27] MEDS: DULoxetine HCL 30 MG CAPSULE.DR PO SCH (11:01)
[2022-03-27] MEDS: POLYETHYLENE GLYCOL (HEALTHYLAX) 3350 17 GM PACKET PO SCH ×2 (11:01→22:42)
[2022-03-27] MEDS: levETIRAcetam 500 MG TABLET (FP) PO SCH ×2 (11:01→22:41)
[2022-03-27] MEDS: CLOTRIMAZOLE/BETAMET DIPROP 15 GM TUBE TP SCH ×2 (11:03→22:42)
[2022-03-27] MEDS: PRAMIPEXOLE DIHYDROCHLORIDE 0.25 MG TABLET PO SCH ×2 (11:04→22:41)
[2022-03-27] MEDS: GABAPENTIN 100 MG CAPSULE PO SCH ×2 (11:04→22:42)
[2022-03-27] MEDS: FAMOTIDINE 20 MG TABLET PO SCH (11:04)
[2022-03-27] MEDS: NYSTATIN POWDER 100,000 UNITS/GM - 15 GM TOPICAL POWDER TP SCH ×2 (11:04→22:41)
[2022-03-27] MEDS: FLUTICASONE/UMECLIDIN/VILANTER(200-62.5-25 TRELEGY ELLIPTA) INAHLER IH SCH (11:05)
[2022-03-27] MEDS: CHOLECALCIFEROL (VIT D3) 1,000 UNIT (25 MCG) TABLET PO SCH (11:05)
[2022-03-27] MEDS: metoPROLOL SUCCINATE 25 MG TAB.SR.24H (FP) PO SCH (11:05)
[2022-03-27] MEDS: TOPIRAMATE 25 MG TABLET PO SCH ×2 (11:05→22:43)
[2022-03-27] MEDS: ACETAMINOPHEN 500 MG TABLET (FP) PO PRN (12:10)
[2022-03-27] MEDS: RIVAROXABAN 20 MG TABLET PO SCH (17:34)
[2022-03-27] MEDS: traZODone HCL 50 MG TABLET (FP) PO SCH (22:40)
[2022-03-27] MEDS: ATORVASTATIN CA 20 MG TABLET (FP) PO SCH (22:41)
[2022-03-27] MEDS: LIDOCAINE PATCH REMOVAL MC SCH (22:42)
[2022-03-28] MEDS: POLYETHYLENE GLYCOL (HEALTHYLAX) 3350 17 GM PACKET PO SCH ×2 (10:49→21:59)
[2022-03-28] MEDS: FAMOTIDINE 20 MG TABLET PO SCH (10:50)
[2022-03-28] MEDS: DULoxetine HCL 30 MG CAPSULE.DR PO SCH (10:50)
[2022-03-28] MEDS: metoPROLOL SUCCINATE 25 MG TAB.SR.24H (FP) PO SCH (10:50)
[2022-03-28] MEDS: TOPIRAMATE 25 MG TABLET PO SCH ×2 (10:51→22:00)
[2022-03-28] MEDS: GABAPENTIN 100 MG CAPSULE PO SCH ×2 (10:51→21:58)
[2022-03-28] MEDS: CHOLECALCIFEROL (VIT D3) 1,000 UNIT (25 MCG) TABLET PO SCH (10:51)
[2022-03-28] MEDS: levETIRAcetam 500 MG TABLET (FP) PO SCH ×2 (10:52→21:58)
[2022-03-28] MEDS: LIDOCAINE 5% TOPICAL PATCH TP SCH (10:52)
[2022-03-28] MEDS: BENZOCAINE/MENTHOL (CHLORASEPTIC ) LOZENGE MM SCH ×4 (10:52→21:59)
[2022-03-28] MEDS: NYSTATIN POWDER 100,000 UNITS/GM - 15 GM TOPICAL POWDER TP SCH ×2 (10:52→22:00)
[2022-03-28] MEDS: CLOTRIMAZOLE/BETAMET DIPROP 15 GM TUBE TP SCH ×2 (10:53→21:59)
[2022-03-28] MEDS: FLUTICASONE/UMECLIDIN/VILANTER(200-62.5-25 TRELEGY ELLIPTA) INAHLER IH SCH (10:53)
[2022-03-28] MEDS: PRAMIPEXOLE DIHYDROCHLORIDE 0.25 MG TABLET PO SCH ×2 (10:53→21:58)
[2022-03-28] MEDS: RIVAROXABAN 20 MG TABLET PO SCH (17:46)
[2022-03-28] MEDS: ACETAMINOPHEN 500 MG TABLET (FP) PO PRN (17:48)
[2022-03-28] MEDS: traZODone HCL 50 MG TABLET (FP) PO SCH (21:58)
[2022-03-28] MEDS: ATORVASTATIN CA 20 MG TABLET (FP) PO SCH (21:58)
[2022-03-28] MEDS: LIDOCAINE PATCH REMOVAL MC SCH (21:59)
[2022-03-29 10:08] LABS: BASO % 1.1 % (0-2.0); EOS % 2.1 % (0-4.5); HEMATOCRIT 40.2 % (32.4-45.2); HEMOGLOBIN 13.1 GM/dL (10.7-15.3); MCH 28.1 pg (25.7-33.7); MCHC 32.6 g/dl (32.0-36.0); MEAN CELL VOLUME 86.2 fl (80-96); MEAN PLT VOLUME 8.8 fl (7.5-11.1); MONO % 6.7 % (3.8-10.2); NEUT % 71.1 % (42.8-82.8); PLATELET COUNT 369 10^3/uL (134-434); RBC 4.66 M/mm3 (3.60-5.2); RDW 15.2 % (11.6-15.6); WHITE BLOOD COUNT 8.4 K/mm3 (4.0-10.0)
[2022-03-29] MEDS: levETIRAcetam 500 MG TABLET (FP) PO SCH ×2 (11:04→22:40)
[2022-03-29] MEDS: FAMOTIDINE 20 MG TABLET PO SCH (11:04)
[2022-03-29] MEDS: PRAMIPEXOLE DIHYDROCHLORIDE 0.25 MG TABLET PO SCH ×2 (11:04→22:39)
[2022-03-29] MEDS: metoPROLOL SUCCINATE 25 MG TAB.SR.24H (FP) PO SCH (11:05)
[2022-03-29] MEDS: CHOLECALCIFEROL (VIT D3) 1,000 UNIT (25 MCG) TABLET PO SCH (11:05)
[2022-03-29] MEDS: GABAPENTIN 100 MG CAPSULE PO SCH ×2 (11:05→22:39)
[2022-03-29] MEDS: FLUTICASONE/UMECLIDIN/VILANTER(200-62.5-25 TRELEGY ELLIPTA) INAHLER IH SCH (11:05)
[2022-03-29] MEDS: DULoxetine HCL 30 MG CAPSULE.DR PO SCH (11:06)
[2022-03-29] MEDS: LIDOCAINE 5% TOPICAL PATCH TP SCH (11:06)
[2022-03-29] MEDS: NYSTATIN POWDER 100,000 UNITS/GM - 15 GM TOPICAL POWDER TP SCH ×2 (11:07→22:41)
[2022-03-29] MEDS: CLOTRIMAZOLE/BETAMET DIPROP 15 GM TUBE TP SCH ×2 (11:07→22:41)
[2022-03-29] MEDS: POLYETHYLENE GLYCOL (HEALTHYLAX) 3350 17 GM PACKET PO SCH ×2 (11:07→22:40)
[2022-03-29] MEDS: TOPIRAMATE 25 MG TABLET PO SCH ×2 (11:07→22:39)
[2022-03-29] MEDS: BENZOCAINE/MENTHOL (CHLORASEPTIC ) LOZENGE MM SCH ×4 (11:08→22:40)
[2022-03-29 11:22] LABS: BLOOD UREA NITROGEN 11.4 mg/dL (7-18); CALCIUM 9.8 mg/dL (8.5-10.1)
[2022-03-29 11:25] LABS: CREATININE 1.2 mg/dL (0.55-1.3)
[2022-03-29 11:26] LABS: BILIRUBIN,TOTAL 0.8 mg/dL (0.2-1)
[2022-03-29 11:27] LABS: TOT PROT 7.2 g/dl (6.4-8.2)
[2022-03-29 11:38] LABS: ALBUMIN 3.4 g/dl (3.4-5.0)
[2022-03-29] MEDS: ACETAMINOPHEN 500 MG TABLET (FP) PO PRN (14:15)
[2022-03-29] MEDS: RIVAROXABAN 20 MG TABLET PO SCH (18:58)
[2022-03-29] MEDS: traZODone HCL 50 MG TABLET (FP) PO SCH (22:39)
[2022-03-29] MEDS: ATORVASTATIN CA 20 MG TABLET (FP) PO SCH (22:39)
[2022-03-29] MEDS: LIDOCAINE PATCH REMOVAL MC SCH (22:40)
[2022-03-30] MEDS: POLYETHYLENE GLYCOL (HEALTHYLAX) 3350 17 GM PACKET PO SCH ×2 (09:44→22:17)
[2022-03-30] MEDS: DULoxetine HCL 30 MG CAPSULE.DR PO SCH (09:44)
[2022-03-30] MEDS: FAMOTIDINE 20 MG TABLET PO SCH (09:45)
[2022-03-30] MEDS: PRAMIPEXOLE DIHYDROCHLORIDE 0.25 MG TABLET PO SCH ×2 (09:45→22:18)
[2022-03-30] MEDS: GABAPENTIN 100 MG CAPSULE PO SCH ×2 (09:45→22:18)
[2022-03-30] MEDS: CHOLECALCIFEROL (VIT D3) 1,000 UNIT (25 MCG) TABLET PO SCH (09:46)
[2022-03-30] MEDS: BENZOCAINE/MENTHOL (CHLORASEPTIC ) LOZENGE MM SCH ×4 (09:46→22:17)
[2022-03-30] MEDS: levETIRAcetam 500 MG TABLET (FP) PO SCH ×2 (09:46→22:18)
[2022-03-30] MEDS: LIDOCAINE 5% TOPICAL PATCH TP SCH (09:47)
[2022-03-30] MEDS: TOPIRAMATE 25 MG TABLET PO SCH ×2 (09:47→22:18)
[2022-03-30] MEDS: FLUTICASONE/UMECLIDIN/VILANTER(200-62.5-25 TRELEGY ELLIPTA) INAHLER IH SCH (09:48)
[2022-03-30] MEDS: CLOTRIMAZOLE/BETAMET DIPROP 15 GM TUBE TP SCH ×2 (09:48→22:19)
[2022-03-30] MEDS: metoPROLOL SUCCINATE 25 MG TAB.SR.24H (FP) PO SCH (09:48)
[2022-03-30] MEDS: NYSTATIN POWDER 100,000 UNITS/GM - 15 GM TOPICAL POWDER TP SCH ×2 (09:49→22:19)
[2022-03-30] MEDS: RIVAROXABAN 20 MG TABLET PO SCH (18:00)
[2022-03-30] MEDS: METHOCARBAMOL 500 MG TABLET PO PRN (20:08)
[2022-03-30] MEDS: traZODone HCL 50 MG TABLET (FP) PO SCH (22:17)
[2022-03-30] MEDS: ATORVASTATIN CA 20 MG TABLET (FP) PO SCH (22:18)
[2022-03-30] MEDS: LIDOCAINE PATCH REMOVAL MC SCH (22:26)
[2022-03-31] MEDS: LIDOCAINE 5% TOPICAL PATCH TP SCH (10:11)
[2022-03-31] MEDS: BENZOCAINE/MENTHOL (CHLORASEPTIC ) LOZENGE MM SCH ×3 (10:11→22:50)
[2022-03-31] MEDS: POLYETHYLENE GLYCOL (HEALTHYLAX) 3350 17 GM PACKET PO SCH ×2 (10:11→22:52)
[2022-03-31] MEDS: levETIRAcetam 500 MG TABLET (FP) PO SCH ×2 (10:18→22:50)
[2022-03-31] MEDS: GABAPENTIN 100 MG CAPSULE PO SCH ×2 (10:18→22:51)
[2022-03-31] MEDS: FAMOTIDINE 20 MG TABLET PO SCH (10:19)
[2022-03-31] MEDS: CLOTRIMAZOLE/BETAMET DIPROP 15 GM TUBE TP SCH ×2 (10:20→22:52)
[2022-03-31] MEDS: DULoxetine HCL 30 MG CAPSULE.DR PO SCH (10:20)
[2022-03-31] MEDS: metoPROLOL SUCCINATE 25 MG TAB.SR.24H (FP) PO SCH (10:20)
[2022-03-31] MEDS: PRAMIPEXOLE DIHYDROCHLORIDE 0.25 MG TABLET PO SCH (10:20)
[2022-03-31] MEDS: NYSTATIN POWDER 100,000 UNITS/GM - 15 GM TOPICAL POWDER TP SCH ×2 (10:20→22:54)
[2022-03-31] MEDS: CHOLECALCIFEROL (VIT D3) 1,000 UNIT (25 MCG) TABLET PO SCH (10:20)
[2022-03-31] MEDS: FLUTICASONE/UMECLIDIN/VILANTER(200-62.5-25 TRELEGY ELLIPTA) INAHLER IH SCH (10:21)
[2022-03-31] MEDS: TOPIRAMATE 25 MG TABLET PO SCH (10:24)
[2022-03-31] MEDS: ACETAMINOPHEN 500 MG TABLET (FP) PO PRN (17:09)
[2022-03-31] MEDS: RIVAROXABAN 20 MG TABLET PO SCH (17:12)
[2022-03-31] MEDS: traZODone HCL 50 MG TABLET (FP) PO SCH (22:50)
[2022-03-31] MEDS: LIDOCAINE PATCH REMOVAL MC SCH (22:51)
[2022-03-31] MEDS: ATORVASTATIN CA 20 MG TABLET (FP) PO SCH (22:51)
[2022-04-01] MEDS: TOPIRAMATE 25 MG TABLET PO SCH ×3 (01:21→21:03)
[2022-04-01] MEDS: PRAMIPEXOLE DIHYDROCHLORIDE 0.25 MG TABLET PO SCH ×3 (01:21→21:02)
[2022-04-01] MEDS: BENZOCAINE/MENTHOL (CHLORASEPTIC ) LOZENGE MM SCH ×3 (11:08→21:06)
[2022-04-01] MEDS: GABAPENTIN 100 MG CAPSULE PO SCH ×2 (11:09→21:02)
[2022-04-01] MEDS: FAMOTIDINE 20 MG TABLET PO SCH (11:10)
[2022-04-01] MEDS: POLYETHYLENE GLYCOL (HEALTHYLAX) 3350 17 GM PACKET PO SCH ×2 (11:10→21:03)
[2022-04-01] MEDS: DULoxetine HCL 30 MG CAPSULE.DR PO SCH (11:10)
[2022-04-01] MEDS: metoPROLOL SUCCINATE 25 MG TAB.SR.24H (FP) PO SCH (11:11)
[2022-04-01] MEDS: CHOLECALCIFEROL (VIT D3) 1,000 UNIT (25 MCG) TABLET PO SCH (11:11)
[2022-04-01] MEDS: CLOTRIMAZOLE/BETAMET DIPROP 15 GM TUBE TP SCH ×2 (11:11→21:05)
[2022-04-01] MEDS: levETIRAcetam 500 MG TABLET (FP) PO SCH ×2 (11:11→21:02)
[2022-04-01] MEDS: LIDOCAINE 5% TOPICAL PATCH TP SCH (11:11)
[2022-04-01] MEDS: FLUTICASONE/UMECLIDIN/VILANTER(200-62.5-25 TRELEGY ELLIPTA) INAHLER IH SCH (11:12)
[2022-04-01] MEDS: NYSTATIN POWDER 100,000 UNITS/GM - 15 GM TOPICAL POWDER TP SCH ×2 (11:12→21:03)
[2022-04-01] MEDS: RIVAROXABAN 20 MG TABLET PO SCH (17:58)
[2022-04-01] MEDS: ACETAMINOPHEN 500 MG TABLET (FP) PO PRN (20:55)
[2022-04-01] MEDS: ATORVASTATIN CA 20 MG TABLET (FP) PO SCH (21:02)
[2022-04-01] MEDS: traZODone HCL 50 MG TABLET (FP) PO SCH (21:02)
[2022-04-01] MEDS: LIDOCAINE PATCH REMOVAL MC SCH (21:06)
[2022-04-02] MEDS ORDERED: INSULIN (NOVOLOG) ASPART 100 UNITS/ML 10ML VIAL ONE (11:05)
[2022-04-02] MEDS: TOPIRAMATE 25 MG TABLET PO SCH ×2 (11:10→22:28)
[2022-04-02] MEDS: levETIRAcetam 500 MG TABLET (FP) PO SCH ×2 (11:11→22:26)
[2022-04-02] MEDS: metoPROLOL SUCCINATE 25 MG TAB.SR.24H (FP) PO SCH (11:11)
[2022-04-02] MEDS: POLYETHYLENE GLYCOL (HEALTHYLAX) 3350 17 GM PACKET PO SCH ×2 (11:11→22:29)
[2022-04-02] MEDS: GABAPENTIN 100 MG CAPSULE PO SCH ×2 (11:12→22:27)
[2022-04-02] MEDS: PRAMIPEXOLE DIHYDROCHLORIDE 0.25 MG TABLET PO SCH ×2 (11:12→22:30)
[2022-04-02] MEDS: DULoxetine HCL 30 MG CAPSULE.DR PO SCH (11:12)
[2022-04-02] MEDS: FAMOTIDINE 20 MG TABLET PO SCH (11:12)
[2022-04-02] MEDS: CHOLECALCIFEROL (VIT D3) 1,000 UNIT (25 MCG) TABLET PO SCH (11:12)
[2022-04-02] MEDS: BENZOCAINE/MENTHOL (CHLORASEPTIC ) LOZENGE MM SCH ×2 (11:13→22:30)
[2022-04-02] MEDS: LIDOCAINE 5% TOPICAL PATCH TP SCH (11:13)
[2022-04-02] MEDS: FLUTICASONE/UMECLIDIN/VILANTER(200-62.5-25 TRELEGY ELLIPTA) INAHLER IH SCH (11:14)
[2022-04-02] MEDS: NYSTATIN POWDER 100,000 UNITS/GM - 15 GM TOPICAL POWDER TP SCH ×2 (11:15→22:29)
[2022-04-02] MEDS: CLOTRIMAZOLE/BETAMET DIPROP 15 GM TUBE TP SCH ×2 (11:15→22:29)
[2022-04-02] MEDS: RIVAROXABAN 20 MG TABLET PO SCH (17:49)
[2022-04-02] MEDS: METHOCARBAMOL 500 MG TABLET PO PRN (22:26)
[2022-04-02] MEDS: ACETAMINOPHEN 500 MG TABLET (FP) PO PRN (22:27)
[2022-04-02] MEDS: LIDOCAINE PATCH REMOVAL MC SCH (22:29)
[2022-04-02] MEDS: ATORVASTATIN CA 20 MG TABLET (FP) PO SCH (22:33)
[2022-04-02] MEDS: traZODone HCL 50 MG TABLET (FP) PO SCH (22:53)
[2022-04-03] MEDS: ACETAMINOPHEN 500 MG TABLET (FP) PO PRN (07:58)
[2022-04-03] MEDS: DULoxetine HCL 30 MG CAPSULE.DR PO SCH (10:09)
[2022-04-03] MEDS: POLYETHYLENE GLYCOL (HEALTHYLAX) 3350 17 GM PACKET PO SCH ×2 (10:10→21:50)
[2022-04-03] MEDS: levETIRAcetam 500 MG TABLET (FP) PO SCH ×2 (10:10→21:48)
[2022-04-03] MEDS: FAMOTIDINE 20 MG TABLET PO SCH (10:12)
[2022-04-03] MEDS: GABAPENTIN 100 MG CAPSULE PO SCH ×2 (10:12→21:49)
[2022-04-03] MEDS: metoPROLOL SUCCINATE 25 MG TAB.SR.24H (FP) PO SCH (10:13)
[2022-04-03] MEDS: TOPIRAMATE 25 MG TABLET PO SCH ×2 (10:13→21:51)
[2022-04-03] MEDS: CHOLECALCIFEROL (VIT D3) 1,000 UNIT (25 MCG) TABLET PO SCH (10:14)
[2022-04-03] MEDS: FLUTICASONE/UMECLIDIN/VILANTER(200-62.5-25 TRELEGY ELLIPTA) INAHLER IH SCH (10:14)
[2022-04-03] MEDS: BENZOCAINE/MENTHOL (CHLORASEPTIC ) LOZENGE MM SCH ×3 (10:15→21:50)
[2022-04-03] MEDS: LIDOCAINE 5% TOPICAL PATCH TP SCH (10:16)
[2022-04-03] MEDS: NYSTATIN POWDER 100,000 UNITS/GM - 15 GM TOPICAL POWDER TP SCH ×2 (10:16→21:50)
[2022-04-03] MEDS: CLOTRIMAZOLE/BETAMET DIPROP 15 GM TUBE TP SCH ×2 (10:16→21:49)
[2022-04-03] MEDS: PRAMIPEXOLE DIHYDROCHLORIDE 0.25 MG TABLET PO SCH ×2 (10:22→21:49)
[2022-04-03] MEDS: RIVAROXABAN 20 MG TABLET PO SCH (17:34)
[2022-04-03] MEDS: traZODone HCL 50 MG TABLET (FP) PO SCH (21:48)
[2022-04-03] MEDS: METHOCARBAMOL 500 MG TABLET PO PRN (21:48)
[2022-04-03] MEDS: ATORVASTATIN CA 20 MG TABLET (FP) PO SCH (21:48)
[2022-04-03] MEDS: LIDOCAINE PATCH REMOVAL MC SCH (21:49)
[2022-04-04] MEDS: levETIRAcetam 500 MG TABLET (FP) PO SCH (09:35)
[2022-04-04] MEDS: metoPROLOL SUCCINATE 25 MG TAB.SR.24H (FP) PO SCH (09:35)
[2022-04-04] MEDS: FAMOTIDINE 20 MG TABLET PO SCH (09:35)
[2022-04-04] MEDS: DULoxetine HCL 30 MG CAPSULE.DR PO SCH (09:35)
[2022-04-04] MEDS: PRAMIPEXOLE DIHYDROCHLORIDE 0.25 MG TABLET PO SCH (09:35)
[2022-04-04] MEDS: BENZOCAINE/MENTHOL (CHLORASEPTIC ) LOZENGE MM SCH ×2 (09:36→17:03)
[2022-04-04] MEDS: POLYETHYLENE GLYCOL (HEALTHYLAX) 3350 17 GM PACKET PO SCH ×2 (09:36→09:55)
[2022-04-04] MEDS: LIDOCAINE 5% TOPICAL PATCH TP SCH (09:36)
[2022-04-04] MEDS: GABAPENTIN 100 MG CAPSULE PO SCH (09:37)
[2022-04-04] MEDS: CLOTRIMAZOLE/BETAMET DIPROP 15 GM TUBE TP SCH (09:37)
[2022-04-04] MEDS: TOPIRAMATE 25 MG TABLET PO SCH (09:37)
[2022-04-04] MEDS: CHOLECALCIFEROL (VIT D3) 1,000 UNIT (25 MCG) TABLET PO SCH (09:37)
[2022-04-04] MEDS: NYSTATIN POWDER 100,000 UNITS/GM - 15 GM TOPICAL POWDER TP SCH (09:37)
[2022-04-04] MEDS: FLUTICASONE/UMECLIDIN/VILANTER(200-62.5-25 TRELEGY ELLIPTA) INAHLER IH SCH (09:38)
[2022-04-04 10:20] VITALS: RESP 18
[2022-04-04 14:30] VITALS: BP 128/88; PULSE 78; TEMP 98.6
[2022-04-04] MEDS: RIVAROXABAN 20 MG TABLET PO SCH (17:03)
== END 2022-04-04 18:05 | disposition home or self-care (01) | DRG 690 ==
LOC: JER 11:24 → JERBED 17:11 → J7W 22:47 → OBSVTOIN 03-19 10:30
PROVIDERS: ADMIT Internal Medicine; ATTEND Internal Medicine
DX: N39.0 Urinary tract infection, site not specified (principal); Z68.43 Body mass index [BMI] 50.0-59.9, adult; F11.20 Opioid dependence, uncomplicated; Z16.12 Extended spectrum beta lactamase (ESBL) resistance; F19.20 Other psychoactive substance dependence, uncomplicated; F31.81 Bipolar II disorder; J44.9 Chronic obstructive pulmonary disease, unspecified; B96.1 Klebsiella pneumoniae [K. pneumoniae] as the cause of diseases classified elsewhere; I10 Essential (primary) hypertension; G89.4 Chronic pain syndrome; M79.7 Fibromyalgia; M54.9 Dorsalgia, unspecified; E66.01 Morbid (severe) obesity due to excess calories; G40.909 Epilepsy, unspecified, not intractable, without status epilepticus; W07.XXXA Fall from chair, initial encounter; Y92.098 Other place in other non-institutional residence as the place of occurrence of the external cause; Y99.8 Other external cause status; Z88.0 Allergy status to penicillin; Z99.3 Dependence on wheelchair; Z86.73 Personal history of transient ischemic attack (TIA), and cerebral infarction without residual deficits
CPT/HCPCS: 36415; 70450-TC; 72128-TC; 72131-TC; 74176-TC; 80048; 80053; 81003; 82550; 82962; 85025; 87040; 87086; 87186; 93005; 93010; 97116-GP; 97161-GP; 99285-25; C9803-CS; G0378; U0003; U0005